=== PATIENT | male | born 1950 | race Two or more races ===

== ENCOUNTER → 2024-04-14 | Outpatient (CLI) | payer OTHER, SELFPAY ==
[2024-04-14 11:04] LABS: Collection Type, Urine Clean Catch
[2024-04-14 11:20] LABS: Basophils # (Auto) 0.1 Thou/mm3 (0.0-0.2); Basophils % (Auto) 1 % (0-2.5); Eosinophils # (Auto) 0.3 Thou/mm3 (0.0-0.5); Eosinophils % (Auto) 3 % (0-10); Hematocrit 46.9 % (41.0-53.0); Hemoglobin 16.2 g/dL (13.5-16.0); Immature Granulocytes % (Auto) 1 % (0-0); Immature Granulocytes Auto 0.06 Thou/mm3 (0.00-0.00); Lymphocytes # (Auto) 3.5 Thou/mm3 (1.0-4.8); Lymphocytes % (Auto) 29 % (10-50); Mean Corpuscular HGB Conc 34.5 g/dl (31.0-37.0); Mean Corpuscular Hemoglobin 30.1 pg (25.0-35.0); Mean Corpuscular Volume 87 fL (80-100); Monocytes # (Auto) 1.2 Thou/mm3 (0.0-0.8); Monocytes % (Auto) 10 % (0-12); Neutrophils # (Auto) 6.8 Thou/mm3 (1.8-7.7); Neutrophils % (Auto) 57 % (37-80); Nucleated Red Blood Cell % 0 /100 WBC (0); Platelet Count 360 Thou/mm3 (140-440); RDW Standard Deviation 42.7 fL (35.1-43.9); Red Blood Count 5.39 Miln/mm3 (4.50-5.90); White Blood Count 11.8 Thou/mm3 (3.8-10.6)
[2024-04-14 11:28] LABS: Bilirubin,Urine Negative (Negative); Blood,Urine Negative (Negative); Clarity,Urine Clear (Clear/Hazy); Color,Urine Lt-Yellow (Lt Yel-Yel); Glucose, Urine Negative (Negative); Ketones,Urine Negative (Negative); Leukocyte Esterase,Urine Positive (Negative); Nitrite,Urine Negative (Negative); PH,Urine 6.5 (5.0-7.0); Protein,Urine Negative (Neg - Trace); RBC,Urine 6 /hpf (0-3); Specific Gravity,Urine 1.019 (1.001-1.035); Squamous Epithelial Cell,Urine 1 /hpf (0-5); Urobilinogen,Urine Negative mg/dL (0.0-1.0); WBC,Urine 2 /hpf (0-5)
[2024-04-14 11:44] LABS: Alanine Aminotransferase 12 U/L (10-49); Albumin, Serum 4.1 gm/dL (3.4-4.8); Albumin/Globulin Ratio 1.6 (1.2-2.2); Alkaline Phosphatase 76 U/L (46-116); Anion Gap 9 (7-16); Aspartate Amino Transferase 11 U/L (0-34); BUN/Creatinine Ratio 16 Ratio (12-20); Bilirubin,Total 0.7 mg/dL (0.3-1.2); Blood Urea Nitrogen 14 mg/dL (9-23); Calcium 9.5 mg/dL (8.3-10.6); Calcium (Corrected) 9.5 mg/dL (8.5-10.1); Carbon Dioxide 30.3 mMol/L (20.0-31.0); Cardiac Risk Estimate 4.1 RATIO (4.0-6.7); Chloride 101 mMol/L (98-107); Cholesterol 167 mg/dL (132-200); Creatinine (Component) 0.9 mg/dL (0.6-1.3); Globulin 2.5 gm/dL (2.3-3.5); Glucose 84 mg/dL (74-106); HDL Cholesterol 41 mg/dL (40-60); LDL Cholesterol,Calculated 107 mg/dL (0-130); Osmolality,Calculated 278 (275-295); Potassium 3.6 mMol/L (3.4-5.1); Sodium 140 mMol/L (136-145); Thyroid Stimulating Hormone 1.15 uIU/mL (0.55-4.78); Total Protein 6.6 gm/dL (5.7-8.2); Triglycerides 97 mg/dL (30-150); Uric Acid 5.5 mg/dL (3.7-9.2); eGFR > 60 See Note
== END | disposition home or self-care (01) ==
LOC: COPL 10:37
PROVIDERS: PCP Family Medicine; Referring Provider Family Medicine; Visit Provider Family Medicine
DX: Z00.00 Encounter for general adult medical examination without abnormal findings (principal); I10 Essential (primary) hypertension; R31.21 Asymptomatic microscopic hematuria; J20.9 Acute bronchitis, unspecified; E79.0 Hyperuricemia without signs of inflammatory arthritis and tophaceous disease
CPT/HCPCS: 36415; 80053; 80061; 81001; 84443; 84550; 85025

== ENCOUNTER 2024-04-29 12:43 | Inpatient (IN) | payer OTHER, MEDICARE, SELFPAY ==
[2024-04-29] VITALS (21 sets, daily range): BP systolic 112–168; BP diastolic 77–102; PULSE 90–126; RESP 15–90; TEMP 36.9–37.8; O2SAT 92–98; BMI 29.2; BMI 27.9; BMI 28.3
--- NOTE | 2024-04-29 12:56 | EKG_ITS ---
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
--- NOTE | 2024-04-29 12:57 | XR_ITS ---
Examination: AP chest single view Technique one AP portable semiupright chest single view Exam date and time: April 29, 2024 1309 hrs. Comparison August 09, 2014 Indications: Shortness of breath today. Findings: Moderate enlargement left ventricle Mild opacity obscuring detail left cardiac contour No aleja pulmonary edema Moderate osteopenia Impression: Recommend lateral chest view follow-up to exclude pneumonia in the lingular segment
--- NOTE | 2024-04-29 13:13 | PD.EDSOB ---
ED SOB =RME/HPI General Chief Complaint: Shortness of Breath/Dyspnea Stated Complaint: SOB, CP, back pain, cough x 1 mo, Post pneumonia Time Seen by Provider: 04/29/24 13:17 Arrival date/time: 04/29/24 12:43 RME / HPI RME / HPI Narrative: DR. BEASLEY MAIN ED EVALUATION: 73 year old male with past medical history significant for hypertension presents to the Emergency Department with complaint of shortness of breath onset 1 week but worse today. Associated symptoms include mild chest pain and a cough. Oxygen saturation 92% on room air in the lobby. Patient was diagnosed with pneumonia in [place] and was taking antibiotics. He states he has an inhaler at home but finished it. Denies vomiting, diarrhea, or constipation. Related Data Home Medications ?Medication ?Instructions ?Recorded ?Confirmed lisinopril 20 1 tab PO QDAY 01/12/20 04/29/24 mg-hydrochlorothiazide 12.5 mg tablet tamsulosin 0.4 mg capsule 0.4 mg PO QDAY 06/18/20 04/29/24 finasteride 5 mg tablet 5 mg PO DAILY 04/29/24 04/29/24 Previous Rx's ?Medication ?Instructions ?Recorded albuterol sulfate 90 mcg/actuation 1 inh inhalation QID PRN shortness 05/01/24 aerosol inhaler of breath or wheezing #6.7 grams azithromycin 500 mg tablet 500 mg PO QDAY 1 day #1 tab 05/01/24 fluticasone fur. 100 mcg-umeclid 1 inh inhalation QDAY #60 ea 05/01/24 62.5 mcg-vilant 25 mcg inhalat.powder (Trelegy Ellipta) Allergies Allergy/AdvReac Type Severity Reaction Status Date / Time No Known Allergies Allergy Verified 08/14/20 11:01 Review of Systems Review of Systems Systems Reviewed: All systems reviewed, normal except as documented Narrative Review of Systems: GEN: No fever, no chills, no weight loss EYES: No discharge, no visual changes, no pain HEENT: No ear pain, no congestion, no sore throat PULM: + shortness of breath, + cough CV: + mild chest pain, no dyspnea on exertion, no palpitations GI: No nausea, no vomiting, no diarrhea, no pain, no constipation : No frequency, no urgency and no dysuria MUSC/SKEL: No joint pain, no back pain SKIN: No rash PSYCH: No hallucinations, no depression HEME/LYMPH: No easy bleeding or bruising tendencies NEURO: No weakness, no headache Past Medical History Past Medical History CARDIAC: Positive Cardiac Disorders GENITOURINARY: Positive Genitourinary Disorders and Benign Prostatic Hyperplasia MUSCULOSKELETAL: Positive Musculoskeletal Disorders and Arthritis ENT: Positive Cataracts (right eye cataract on this problem) OTHER HISTORY: Positive Chicken Pox Family History FAMILY HISTORY: Positive Family Cancer (sister-lung cancer) Surgical History SURGICAL: Positive Tonsillectomy and of Shoulder Sx (RIGHT) Social History SMOKING STATUS: Never smoker SUBSTANCE USE: does not use ALCOHOL: Never ED Exam Narrative Physical exam: GENERAL APPEARANCE: alert and oriented x 4, well-developed, well-nourished, no acute distress VITALS: All vitals were reviewed and the pulse ox is 95% on room air, which is normal according to my interpretation. HEENT: Normocephalic, atraumatic; pupils equal, round, reactive to light; EOMI; mucous membranes pink, moist; oropharynx clear NECK: Supple LUNGS: there are wheezes throughout HEART: Regular rate, regular rhythm; normal S1, S2; no murmurs ABDOMEN: non distended; normal BS; soft, no tenderness, no guarding, no rebound; no masses, no organomegaly, no hernia BACK: no CVA tenderness EXTREMITIES: atraumatic; no edema NEUROLOGIC: awake; alert and oriented x4; cranial nerves II-XII grossly intact; no focal sensory or motor deficits PSYCHIATRIC: appropriate mood and affect SKIN: warm, dry, normal color; no rashes Course Course Course Narrative: 1800: Patient was signed out to Dr. Mchugh. Past medical, surgical, social and family history reviewed. Vitals and home medications reviewed. Results and treatment plan discussed. They will assume the care of the patient at this time and will follow the patient, pending chest CTA, abdomen/pelvis CT, remainder of labs, and final disposition. Quality Measures none Orders Category Date Time Status Bedside COVID-19 Antigen Test NOW Care 04/29/24 12:57 Active Bedside COVID-19 Antigen Test NOW Care 04/29/24 19:22 Completed Bedside Influenza A&B Antigen Test NOW Care 04/29/24 12:57 Completed COVID-19 Screening Questionnaire NOW Care 04/29/24 19:[address] Screening NOW Care 04/29/24 16:56 Active Waste Examiner Q4H START 00 Care 04/29/24 12:57 Active Decision to Admit X1 Care 04/29/24 19:45 Completed EKG (ED ONLY) *Do not use* NOW Care 04/29/24 12:57 Completed EKG (ED Only) Stat Exams 04/29/24 12:56 Draft XR chest 1V portable Stat Exams 04/29/24 12:57 Completed BNP [B-Type Natriuretic Peptide] Stat Lab 04/29/24 13:21 Completed Blood Culture (Lab) Stat Lab 04/29/24 13:21 Results CBC Stat Lab 04/29/24 13:21 Completed Comprehensive Metabolic Panel Stat Lab 04/29/24 13:21 Completed Lactate (Lactic Acid) Stat Lab 04/29/24 13:21 Completed Lipase Stat Lab 04/29/24 13:21 Completed Procalcitonin Stat Lab 04/29/24 13:21 Completed Troponin I Stat Lab 04/29/24 13:21 Completed Troponin I Stat Lab 04/29/24 17:03 Completed Urinalysis Stat Lab 04/29/24 13:46 Completed Urine Culture Stat Lab 04/29/24 13:46 Completed Urine Culture Stat Lab 04/29/24 19:09 Ordered ALBUTEROL RT 0.5ml [Proventil Rt 0.5ml] Med 04/29/24 13:58 Discontinued 10 mg INH X1 ONE Acetaminophen Tab [Tylenol Tab] Med 04/29/24 18:12 Discontinued 650 mg PO X1 ONE Albuterol/Ipratr Rt Leni [Duoneb Rt Leni] Med 04/29/24 12:56 Discontinued 3 ml INH X1 ONE Azithromycin Inj [Zithromax Inj] 500 mg Med 04/29/24 16:58 Discontinued Sodium Chloride 0.9% 250 ml [Ns] 250 ml IV X1 Dexamethasone Inj [Decadron Inj] Med 04/29/24 12:56 Discontinued 10 mg PO X1 ONE Ipratropium [place] Rt Leni [Atrovent Rt Leni] Med 04/29/24 13:58 Discontinued 0.5 mg INH X1 ONE Ketorolac Inj [Toradol Inj] Med 04/29/24 18:12 Discontinued 30 mg IVP X1 ONE Levalbuterol Rt [Xopenex Rt Leni] Med 04/29/24 17:55 Discontinued 2.5 mg INH X1 ONE Magnesium Sulfate 2 GM Ivpb [Magnesium Sulfate Ivpb] Med 04/29/24 19:31 Discontinued 2 gm in 50 ml IV X1 MethylPREDNISolone.* [SoluMEDROL Inj] Med 04/29/24 17:55 Discontinued 125 mg IVP X1 ONE Morphine Inj Med 04/29/24 16:57 Discontinued 3 mg IVP X1 ONE Ondansetron Inj [Zofran Inj] Med 04/29/24 16:57 Discontinued 4 mg IV X1 ONE Potassium Chloride [K-Dur] Med 04/29/24 19:31 Discontinued 40 meq PO X1 ONE Sodium Chloride Rt Leni 0.9% [NS Rt Leni 0.9%] Med 04/29/24 13:58 Discontinued 3 ml INH PRN PRN Sodium Chloride Rt Leni 0.9% [NS Rt Leni 0.9%] Med 04/29/24 17:55 Active 3 ml INH PRN PRN cefTRIAXone [Rocephin] 1,000 mg Med 04/29/24 17:19 Discontinued SODIUM CHLORIDE 0.9% (Popper) [Ns 0.9% (P)] 50 ml IV X1 Reevaluation(s) Reevaluation #1: Re-assessment at the time of disposition demonstrates that the patient is still wheezing and complains of pain in right lower chest area posteriorly, lung pain from coughing . Will give an other breathing treatment, order antibiotics for bronchitis, and order a chest CTA. Time: 16:56 Vital Signs Vital signs: Vital Signs Temperature 99.7 F 04/29/24 12:48 Pulse Rate 103 H 04/29/24 12:48 Respiratory Rate 19 04/29/24 12:48 Blood Pressure 168/102 H 04/29/24 12:48 Pulse Oximetry (%) 92 L 04/29/24 12:48 Oxygen Delivery Method Room Air 04/29/24 12:48 Procedures -ED EKG Interpretation #1: Date of EK04/29/24 Time of EK:00 Rate: 103 Interpretation: Interpreted by me Additional EKG comment: sinus tachycardia, rate 103, no acute ischemic changes Shortness of Breath / Dyspnea MDM Narrative MDM Narrative:: Beth Wolfe am scribing for and in the presence of Dr. Beasley. Patient data External records reviewed:: [facility] previous records (Reviewed opthalmology note by Dr. Junior, dated 06/24/21.) Clinical information provided by:: patient Social determinants that could affect healthcare access:: none Patient has the following chronic illnesses:: Hypertension How is presenting disease/condition affected by chronic disease/condition?: exacerbated by Evaluation data The following diagnostics were reviewed and interpreted by me:: lab results, radiology exam(s) and EKG tracing(s) (EKG#1: EKG at 1300 hours. Interpreted by me: sinus tachycardia, rate 103, no acute ischemic changes) Lab and/or radiology exams considered but not ordered:: none Interpretation Summary: Pending. Medications / Prescriptions Medications or Prescriptions considered but not ordered:: none Medication administrations:: Medication Administration History Acetaminophen (Acetaminophen 500 Mg Tablet) 1,000 mg PO Q6H PRN PRN Reason: Fever >100 or pain 1-3 Stop: 05/29/24 19:53 Last Admin: 05/01/24 16:20 Dose: 1,000 mg Documented By: RICHELLE Hydrocodone Bitart/Acetaminophen (Hydrocodone/Apap 5/325 Tablet) 1 tab PO Q4HR PRN PRN Reason: PAIN SCALE 4-10(Mod-Sev Stop: 05/04/24 19:53 Last Admin: 04/30/24 00:07 Dose: 1 tab Documented By: Enoxaparin Sodium (Enoxaparin Sod Inj 40 Mg/0.4 Ml Syringe) 40 mg SC QDAY [facility] Stop: 05/14/24 08:59 Last Admin: 05/01/24 08:04 Dose: 40 mg Documented By: Admin: 04/30/24 08:47 Dose: 40 mg Documented By: SEBAS Finasteride (Finasteride 5 Mg Tablet) 5 mg PO QDAY [facility] Stop: 05/30/24 08:59 Last Admin: 05/01/24 08:05 Dose: 5 mg Documented By: Admin: 04/30/24 08:47 Dose: 5 mg Documented By: ESBAS Guaifenesin/Dextromethorphan (Guaifenesin/Dm Tablet) 1 each PO BID [facility] Stop: 05/29/24 22:44 Last Admin: 05/01/24 08:05 Dose: 1 each Documented By: Admin: 04/30/24 20:09 Dose: 1 each Documented By: Admin: 04/30/24 08:47 Dose: 1 each Documented By: Admin: 04/30/24 00:03 Dose: 1 each Documented By: Ceftriaxone Sodium 1,000 mg/ (Sodium Chloride) 50 mls @ 100 mls/hr IV QDAY@2100 [facility] Stop: 05/07/24 08:59 Last Admin: 04/30/24 20:06 Dose: 100 mls/hr Documented By: SMOOTH Azithromycin 500 mg/ Sodium (Chloride) 250 mls @ 250 mls/hr IV QDAY@2100 [facility] Stop: 05/07/24 08:59 Last Admin: 04/30/24 21:05 Dose: 250 mls/hr Documented By: SMOOTH Ipratropium [place] (Ipratropium Rt 0.5 Mg/ 2.5 Ml Nebu) 0.5 mg INH Q6HRRT [facility] Stop: 05/30/24 00:59 Last Admin: 05/01/24 18:42 Dose: 0.5 mg Documented By: Admin: 05/01/24 12:21 Dose: 0.5 mg Documented By: Admin: 05/01/24 07:47 Dose: 0.5 mg Documented By: Admin: 05/01/24 00:03 Dose: 0.5 mg Documented By: Admin: 04/30/24 19:32 Dose: 0.5 mg Documented By: Admin: 04/30/24 12:34 Dose: 0.5 mg Documented By: Admin: 04/30/24 06:45 Dose: 0.5 mg Documented By: SIMONE Levalbuterol HCl (Levalbuterol Rt 1.25 Mg/0.5 Ml Nebu) 1.25 mg INH Q6HRRT [facility] Stop: 05/31/24 10:29 Last Admin: 05/01/24 18:42 Dose: 1.25 mg Documented By: Admin: 05/01/24 12:21 Dose: Not Given Documented By: MANUELA Non-Admin Reason: Duplicate Medication on eMAR Admin: 05/01/24 12:20 Dose: 1.25 mg Documented By: MANUELA Lisinopril (Lisinopril 20 Mg Tablet) 20 mg PO QDAY [facility] Stop: 05/31/24 08:59 Last Admin: 05/01/24 08:05 Dose: 20 mg Documented By: RICHELLE Morphine Sulfate (Morphine Sulf Inj 10 Mg/Ml Vial) 2 mg IVP Q4HR PRN PRN Reason: BREAKTHROUGH PAIN Stop: 05/04/24 20:04 Ondansetron HCl (Ondansetron Inj 2 Mg/Ml Inj 2 Ml) 4 mg IV Q6H PRN; Protocol PRN Reason: NAUSEA OR VOMITING Stop: 05/29/24 19:53 Pantoprazole Sodium (Pantoprazole Inj 40 Mg Vial) 40 mg IVP QDAY [facility] Stop: 05/30/24 08:59 Last Admin: 05/01/24 08:06 Dose: 40 mg Documented By: Admin: 04/30/24 08:47 Dose: 40 mg Documented By: SEBAS Sennosides (Senna Tablet) 1 tab PO QDAY [facility]; Protocol Stop: 05/30/24 08:59 Last Admin: 05/01/24 08:06 Dose: 1 tab Documented By: Admin: 04/30/24 08:47 Dose: 1 tab Documented By: SEBAS Sodium Chloride (Sodium Chloride Rt Leni 0.9% 3 Ml Nebu) 3 ml INH PRN PRN PRN Reason: SOLN Stop: 05/29/24 17:54 Tamsulosin HCl (Tamsulosin Hcl 0.4 Mg Capsule) 0.4 mg PO QDAY [facility] Stop: 05/30/24 09:14 Last Admin: 05/01/24 08:06 Dose: 0.4 mg Documented By: Admin: 04/30/24 12:47 Dose: 0.4 mg Documented By: Discontinued Medications Acetaminophen (Acetaminophen 325 Mg Tablet) 650 mg PO X1 ONE Stop: 04/29/24 18:13 Last Admin: 04/29/24 18:22 Dose: 650 mg Documented By: ADEEL Acetaminophen (Acetaminophen 325 Mg Tablet) 650 mg PO Q6H PRN PRN Reason: Fever >100.3 or pain Stop: 05/29/24 19:53 Acetaminophen (Acetaminophen 325 Mg Tablet) 1,000 mg PO Q6H PRN PRN Reason: Fever >100 or pain 1-3 Stop: 05/29/24 19:53 Albuterol (Albuterol Rt 2.5 Mg/0.5 Ml Nebu) 10 mg INH X1 ONE Stop: 04/29/24 13:59 Last Admin: 04/29/24 14:14 Dose: 10 mg Documented By: [facility] Albuterol/Ipratropium (Albuterol/Ipratropium (Duoneb) Rt Leni 3 Ml Nebu) 3 ml INH X1 ONE Stop: 04/29/24 12:57 Last Admin: 04/29/24 13:23 Dose: 3 ml Documented By: LOLI Dexamethasone Sodium Phosphate (Dexamethasone Sod Phos Inj 10 Mg/Ml Vial) 10 mg PO X1 ONE Stop: 04/29/24 12:57 Last Admin: 04/29/24 13:41 Dose: 10 mg Documented By: ADEEL Azithromycin 500 mg/ Sodium (Chloride) 250 mls @ 250 mls/hr IV X1 ONE Stop: 04/29/24 17:57 Last Infusion: 04/29/24 20:25 Dose: Infused Documented By: Admin: 04/29/24 19:19 Dose: 250 mls/hr Documented By: BELKIS Ceftriaxone Sodium 1,000 mg/ (Sodium Chloride) 50 mls @ 100 mls/hr IV X1 ONE Stop: 04/29/24 17:48 Last Infusion: 04/29/24 19:05 Dose: Infused Documented By: Admin: 04/29/24 18:26 Dose: 100 mls/hr Documented By: ADEEL Magnesium Sulfate (Magnesium Sulfate Ivpb) 2 gm in 50 mls @ 25 mls/hr IV X1 ONE Stop: 04/29/24 21:30 Last Admin: 04/29/24 20:23 Dose: 25 mls/hr Documented By: BELKIS Ipratropium [place] (Ipratropium Rt 0.5 Mg/ 2.5 Ml Nebu) 0.5 mg INH X1 ONE Stop: 04/29/24 13:59 Last Admin: 04/29/24 14:15 Dose: 0.5 mg Documented By: LOLI Ketorolac Tromethamine (Ketorolac Inj 30 Mg/Ml Vial) 30 mg IVP X1 ONE Stop: 04/29/24 18:13 Last Admin: 04/29/24 18:26 Dose: 30 mg Documented By: ADEEL Levalbuterol HCl (Levalbuterol Rt 1.25 Mg/0.5 Ml Nebu) 2.5 mg INH X1 ONE Stop: 04/29/24 17:56 Last Admin: 04/29/24 18:37 Dose: 2.5 mg Documented By: LETHA Levalbuterol HCl (Levalbuterol Rt 0.31 Mg/3 Ml Nebu) 0.31 mg INH Q6HR RM Stop: 05/29/24 19:59 Last Admin: 04/29/24 21:03 Dose: Not Given Documented By: LETHA Non-Admin Reason: Medication Not Available Levalbuterol HCl (Levalbuterol Rt 0.31 Mg/3 Ml Nebu) 0.31 mg INH Q6HRRT RM Stop: 05/30/24 00:59 Last Admin: 05/01/24 07:23 Dose: 0.31 mg Documented By: Admin: 05/01/24 00:01 Dose: Not Given Documented By: LEE Non-Admin Reason: Medication Not Available Admin: 04/30/24 19:32 Dose: 0.31 mg Documented By: Admin: 04/30/24 12:34 Dose: 0.31 mg Documented By: Admin: 04/30/24 06:45 Dose: Not Given Documented By: SIMONE Non-Admin Reason: Medication Not Available Methylprednisolone Sodium Succinate (Methylprednisolone Sod Succ 62.5 Mg/Ml 2ml Vial) 125 mg IVP X1 ONE Stop: 04/29/24 17:56 Last Admin: 04/29/24 18:26 Dose: 125 mg Documented By: ADEEL Methylprednisolone Sodium Succinate (Methylprednisolone Sod Succ 40 Mg Vial) 40 mg IVP X1 ONE Stop: 05/01/24 10:19 Last Admin: 05/01/24 12:09 Dose: 40 mg Documented By: RICHELLE Morphine Sulfate (Morphine Sulf Inj 10 Mg/Ml Vial) 3 mg IVP X1 ONE Stop: 04/29/24 16:58 Last Admin: 04/29/24 18:25 Dose: 3 mg Documented By: SARAYS Ondansetron HCl (Ondansetron Inj 2 Mg/Ml Inj 2 Ml) 4 mg IV X1 ONE Stop: 04/29/24 16:58 Last Admin: 04/29/24 18:25 Dose: 4 mg Documented By: ADEEL Potassium Chloride (Potassium Chloride 20 Meq Tabcr) 40 meq PO X1 ONE Stop: 04/29/24 19:32 Last Admin: 04/29/24 20:23 Dose: 40 meq Documented By: BELKIS Sodium Chloride (Sodium Chloride Rt Leni 0.9% 3 Ml Nebu) 3 ml INH PRN PRN PRN Reason: SOLN Stop: 05/29/24 13:57 Last Admin: 04/29/24 18:37 Dose: 3 ml Documented By: Admin: 04/29/24 14:15 Dose: 3 ml Documented By: [facility] Sodium Chloride (Sodium Chloride Rt 10% 15 Ml Nebu) 5 ml INH X1 ONE Stop: 04/29/24 20:00 see above Consultations Consultation(s) initiated? (list below): No Diagnosis Shortness of Breath Differential Diagnosis: acute exacerbation of chronic obstructive airways disease, congestive heart failure, community acquired pneumonia, asthma with exacerbation, pulmonary embolism and other (SC, pneumonia) Most likely diagnosis given after review of the tests above:: No official diagnoses at this time, still pending diagnostic tests. Patient signout to the shift foreman provider. Admission Indicated Admission indicated?: not indicated Explain why admission is indicated or not indicated:: No final disposition plan at this time, still pending diagnostic tests. Patient signout to the shift foreman provider. Admission Request Was there a request for admission?: No Disposition Plan Disposition Plan: other (specify) (Patient signout to the shift foreman provider, pending chest CTA, abdomen/pelvis CT, remainder of labs, and final disposition.) Discharge Plan Plan Patient Disposition: Admit Acute Care w/in Hospital Problem List Clinical Impression: Acute respiratory failure with hypoxia, COPD exacerbation, Pneumonia, UTI (urinary tract infection), Fever
[2024-04-29] MEDS: ALBUTEROL/IPRATROPIUM (Duoneb) RT SOL 3 ML NEBU INH (13:23)
--- NOTE | 2024-04-29 13:27 | PC.NURSE ---
PT IN TODAY FOR COUGH FOR 1 WEEK AND HAS SEEN PMD. STATES THAT HE HAD BEEN SICK ON AND OFF FOR THE LAST MONTH. PT STARTED GETTING WORSE LAST NIGHT. PT IS A/OX4, LUNGS SOUNDS ARE WHEEZING THROUGHOUT. PT SPO2 ON RA IS 84%. PT WAS PLACED ON O2 2L/M AND SPO2 WENT UP TO 95%. IS AT THE BEDSIDE AND AWAITING TO BE SEEN BY MD.
[2024-04-29 13:35] LABS: Lactate (Lactic Acid) 1.4 mMol/L (0.4-2.0)
[2024-04-29] MEDS: DEXAMETHASONE SOD PHOS INJ 10 MG/ML VIAL PO (13:41)
[2024-04-29 13:42] LABS: Basophils # (Auto) 0.1 Thou/mm3 (0.0-0.2); Basophils % (Auto) 0 % (0-2.5); Eosinophils # (Auto) 1.9 Thou/mm3 (0.0-0.5); Eosinophils % (Auto) 10 % (0-10); Hematocrit 50.1 % (41.0-53.0); Hemoglobin 17.1 g/dL (13.5-16.0); Immature Granulocytes % (Auto) 0 % (0-0); Immature Granulocytes Auto 0.08 Thou/mm3 (0.00-0.00); Lymphocytes # (Auto) 2.2 Thou/mm3 (1.0-4.8); Lymphocytes % (Auto) 12 % (10-50); Mean Corpuscular HGB Conc 34.1 g/dl (31.0-37.0); Mean Corpuscular Hemoglobin 30.2 pg (25.0-35.0); Mean Corpuscular Volume 89 fL (80-100); Monocytes # (Auto) 1.4 Thou/mm3 (0.0-0.8); Monocytes % (Auto) 7 % (0-12); Neutrophils # (Auto) 13.1 Thou/mm3 (1.8-7.7); Neutrophils % (Auto) 70 % (37-80); Nucleated Red Blood Cell % 0 /100 WBC (0); Platelet Count 356 Thou/mm3 (140-440); RDW Standard Deviation 44.1 fL (35.1-43.9); Red Blood Count 5.66 Miln/mm3 (4.50-5.90); White Blood Count 18.8 Thou/mm3 (3.8-10.6)
[2024-04-29 14:01] LABS: Alanine Aminotransferase 15 U/L (10-49); Albumin/Globulin Ratio 1.7 (1.2-2.2); Alkaline Phosphatase 85 U/L (46-116); Anion Gap 9 (7-16); Aspartate Amino Transferase 20 U/L (0-34); BUN/Creatinine Ratio 10 Ratio (12-20); Bilirubin,Total 0.9 mg/dL (0.3-1.2); Blood Urea Nitrogen 9 mg/dL (9-23); Calcium 9.9 mg/dL (8.3-10.6); Calcium (Corrected) 9.9 mg/dL (8.5-10.1); Carbon Dioxide 29.4 mMol/L (20.0-31.0); Chloride 99 mMol/L (98-107); Creatinine (Component) 0.9 mg/dL (0.6-1.3); Estimated Creatinine Clearance 84.3 mL/min (>60); Globulin 2.9 gm/dL (2.3-3.5); Glucose 114 mg/dL (74-106); Lipase 40 U/L (12-53); Osmolality,Calculated 273 (275-295); Potassium 3.5 mMol/L (3.4-5.1); Procalcitonin 0.11 ng/ml (0.0-0.49); Sodium 137 mMol/L (136-145); Total Protein 7.9 gm/dL (5.7-8.2); Troponin I < 0.020 ng/mL (0.0-0.045); eGFR > 60 See Note
[2024-04-29 14:09] LABS: B-Type Natriuretic Peptide < 20 pg/mL (0-100)
[2024-04-29] MEDS: ALBUTEROL RT 2.5 MG/0.5 ML NEBU 10 MG INH (14:14)
[2024-04-29] MEDS: IPRATROPIUM RT 0.5 MG/ 2.5 ML NEBU INH (14:15)
[2024-04-29] MEDS: SODIUM CHLORIDE RT SOL 0.9% 3 ML NEBU INH ×2 (14:15→18:37)
[2024-04-29 14:40] LABS: Collection Type, Urine Clean Catch
[2024-04-29 14:51] LABS: Bilirubin,Urine Negative (Negative); Blood,Urine 2+ (Negative); Clarity,Urine Clear (Clear/Hazy); Color,Urine Lt-Yellow (Lt Yel-Yel); Glucose, Urine Negative (Negative); Ketones,Urine Negative (Negative); Leukocyte Esterase,Urine Positive (Negative); Nitrite,Urine Negative (Negative); Protein,Urine 1+ (Neg - Trace); RBC,Urine 35 /hpf (0-3); Specific Gravity,Urine 1.019 (1.001-1.035); Squamous Epithelial Cell,Urine 1 /hpf (0-5); Urobilinogen,Urine Negative mg/dL (0.0-1.0); WBC,Urine 42 /hpf (0-5)
[2024-04-29 17:41] LABS: Troponin I < 0.020 ng/mL (0.0-0.045)
[2024-04-29] MEDS: ACETAMINOPHEN 325 MG TABLET 650 MG PO (18:22)
[2024-04-29] MEDS: ONDANSETRON INJ 2 MG/ML INJ 2 ML 4 MG IV (18:25)
[2024-04-29] MEDS: MORPHINE SULF INJ 10 MG/ML VIAL 3 MG IVP (18:25)
[2024-04-29] MEDS: KETOROLAC INJ 30 MG/ML VIAL IVP (18:26)
[2024-04-29] MEDS: MethylPREDNISolone SOD SUCC 62.5 MG/ML 2ML VIAL 125 MG IVP (18:26)
[2024-04-29] MEDS: cefTRIAXone 1,000 MG in SODIUM CHLORIDE 0.9% (Popper) 50 ML 100 MG IV (18:26)
[2024-04-29] MEDS: LEVALBUTEROL RT 1.25 MG/0.5 ML NEBU 2.5 MG INH (18:37)
[2024-04-29] MEDS: AZITHROMYCIN INJ 500 MG in SODIUM CHLORIDE 0.9% 250 ML 250 ML 250 MG IV (19:19)
--- NOTE | 2024-04-29 19:45 | PD.EDADDENDU ---
Emergency Room Addendum Addendum Narrative: I took over the care from Dr. BENAVIDEZ at 6 PM on 04/29/2024, see her notes for complete H&P and ED course. I reviewed all diagnostic test results. Diagnoses include acute respiratory failure with hypoxia, COPD exacerbation, pneumonia, UTI, and fever. I discussed the case with our hospitalist. About the presentation and exam and diagnostics and treatments here. And need of further care in the hospital. Will accept the patient. Charles Mchugh MD
--- NOTE | 2024-04-29 20:07 | ESHP_ITS ---
<Statement entered by Devon Wu MD - 04/30/24 05:42> 73-year-old male with multiple comorbidities including hypertension and BPH who follows up with outpatient urology who presented with a chief complaint of shortness of breath found to have sepsis secondary to community-acquired pneumonia and UTI. As of now, plan to admit the patient to telemetry, IV antibiotic therapy and will obtain infectious workup. In addition, patient also have BPH for which we will continue to monitor closely as there is a risk for urinary retention.I reviewed above note and agree with findings and plans. I have also personally examined the patient with medicine team and went over assessment and plan with medical team including web development intern and resident physician. Documentation for date of: 04/29/24 HPI History of Present Illness Chief complaint: SOB, Cough, Dysuria History of present illness: HPI: Patient is Hungarian-speaking and history was facilitated by registered healthcare electrical engineering technologist. Patient is a 73-year-old male with past medical history significant for primary hypertension, giant prostatomegaly follows up with Urology Dr. Paul presenting today with a chief complaint of worsening shortness of breath and cough. Patient states that his shortness of breath started 1 month ago and progressively worsened. He states that it occurs both at rest and activity but is worsened with activity and coughing. His cough started around the same time and he described it as productive with white/yellow mucus. Associated with pleuritic chest pain, headaches, feelings of warmth, diaphoresis and occasional palpitations. Patient states that he had his flu and pneumonia vaccine November 2023. Denies any hemoptysis, chest pain/pressure, PND/orthopnea and sick contacts. Patient also endorses dysuria and increased urinary frequency for the past week. Denies any incontinence, poor flow and fever. Of note 1 month ago patient's was in [place] and developed upper respiratory symptoms including cough and shortness of breath. He visited a local physician who recommended he be hospitalized. Patient opted to not be hospitalized and instead was prescribed a 1 week course of Augmentin. Despite completing the course patient's symptoms persisted. ED course: BP 163/102, pulse 102, RR 16, temp 100.1 F, SpO2 92% on 1 L O2 via NC. Labs significant for WBC 18.8, Hb 17.1, HCT 50.1, PLT 256, K3.5, BUN 9, CR 0.9, troponin <0.020. Urinalysis significant for 1+ protein, 2+ blood, leukocyte esterase positive and 42 WBCs. EKG significant for rate 103, sinus tachycardia. No acute ST changes. Chest x-ray significant for left base consolidation. In the ED patient received DuoNebs x 2, dexamethasone 10 Mg p.o. x 1, acetaminophen 650 Mg x 1, morphine 2 Mg IV x 1, ondansetron 4 Mg IV x 1, ceftriaxone 1 g IV x 1, Methylpred 125 Mg IV x 1, ketorolac 30 Mg IV x 1, azithromycin 500 Mg IV x 1. Patient will be admitted for suspected sepsis secondary to UTI and community- acquired pneumonia Review of Systems Review of Systems Narrative Review of Systems: GENERAL: As above HEENT: Denies headaches or visual changes. Denies discharge. Neuro: Denies unusual weakness or difficulty speaking. CARDIO: As Above PULM: As above GI: Denies abdominal pain, N/V/C/D. Reports having BMs. URO: As above MSK/EXT/SKIN: Denies joint/skeletal/muscle pain, issues/changes in upper or lower extremities, itchiness, or superficial pain. PSYCH: Cooperative, pleasant mood & affect. The rest of the review of systems is otherwise negative. Past Medical History Past Medical History Comments PMH COMMENT: Past medical history: Primary hypertension Giant prostatomegaly Medication list: Finasteride 5 Mg p.o. daily Lisinopril/HCTZ 20/12.5 1 tab p.o. daily Past surgical history: B/L Phaco and IOL Allergies: NKFDA Social history: Occupational History: Previously worked as a field sales manager in the [employer] Education Level: Attended elementary school in [place]. Marital Status: with 4 kids Tobacco use: Quit 30 years ago. Previously [id number] smoking history. ETHO use: Occasional Illicit drug use: Denies Social History Note: lives with . Carries out all ADLs independently. At baseline can walk without any assistive devices. Family History: Strong family history of hypertension Exam Vital Signs Temp Pulse Resp BP Pulse Ox O2 Del Method O2 Flow Rate 99.0 F 107 H 16 133/78 H 93 L Nasal Cannula 2 04/29/24 19:04/29/24 19:04/29/24 19:04/29/24 19:00 04/29/24 19:00 04/29/24 19:00 04/29/24 19:00 Narrative Exam Constitutional Alert, oriented x 3 and comfortable. Elderly male on 1L O2 via NC HEENT Vision grossly intact. Patent nares. Trachea midline Respiratory Chest normal on inspection and scattered polyphonic wheeze on auscultation in all lung ellington bilaterally. Cardiovascular S1 and S2 audible, RRR. No murmurs carotid bruit. No gross JVD. Abdominal Soft and non tender to palpation in all quadrants. BS + Genitourinary Suprapubic tenderness on palpation. Musculoskeletal Extremities tone within normal limits. No LE edema. Neurological CN II - XII grossly intact. Extremity motor and sensation grossly intact. Skin Warm, dry and intact. No apparent lesions. Psychiatric Patient has good affect, is cooperative Results: Labs 04/29/24 13:21 04/29/24 13:21 Labs: Short CBC 04/29/24 Range/Units 13:21 WBC 18.8 H (3.8-10.6) Thou/mm3 Hgb 17.1 H (13.5-16.0) g/dL Hct 50.1 (41.0-53.0) % Plt Count 356 (140-440) Thou/mm3 BMP 04/29/24 13:21 Sodium 137 Potassium 3.5 Chloride 99 Carbon Dioxide 29.4 BUN 9 Creatinine 0.9 Glucose 114 H Calcium 9.9 Cardiac Enzymes 04/29/24 04/29/24 Range/Units 13:21 17:03 Troponin I < 0.020 < 0.020 (0.0-0.045) ng/mL Liver Function 04/29/24 Range/Units 13:21 Total Bilirubin 0.9 (0.3-1.2) mg/dL AST 20 (0-34) U/L ALT 15 (10-49) U/L Alkaline Phosphatase 85 (46-116) U/L Albumin 5.0 H (3.4-4.8) gm/dL Urine 04/29/24 Range/Units 13:46 Urine Color Lt-Yellow (Lt Yel-Yel) Urine Clarity Clear (Clear/Hazy) Urine pH 6.0 (5.0-7.0) Ur Specific [place] 1.019 (1.001-1.035) Urine Protein 1+ A (Neg - Trace) Urine Glucose (UA) Negative (Negative) Quality Measures Quality Measures none Advance care planning discussed with:: patient Medications Home Medications and Allergies Home Medications ?Medication ?Instructions ?Recorded ?Confirmed ?Type lisinopril 20 1 tab PO QDAY 01/12/2008/14 History mg-hydrochlorothiazide 12.5 mg tablet finasteride 1 mg tablet 1 mg PO QDAY 06/18/20 History tamsulosin 0.4 mg capsule 0.4 mg PO QDAY 06/18/2007/24 History Allergies Allergy/AdvReac Type Severity Reaction Status Date / Time No Known Allergies Allergy Verified 08/14/20 11:01 Visit Medications Acetaminophen (Acetaminophen 325 Mg Tablet) 650 mg PO Q6H PRN PRN Reason: Fever >100.3 or pain Stop: 05/29/24 19:53 Hydrocodone Bitart/Acetaminophen (Hydrocodone/Apap 5/325 Tablet) 1 tab PO Q4HR PRN PRN Reason: PAIN SCALE 4-10(Mod-Sev Stop: 05/04/24 19:53 Enoxaparin Sodium (Enoxaparin Sod Inj 40 Mg/0.4 Ml Syringe) 40 mg SC QDAY RM Stop: 05/13/24 19:59 Finasteride (Finasteride 5 Mg Tablet) 5 mg PO QDAY RM Stop: 05/30/24 08:59 Magnesium Sulfate (Magnesium Sulfate Ivpb) 2 gm in 50 mls @ 25 mls/hr IV X1 ONE Stop: 04/29/24 21:30 Ceftriaxone Sodium 1,000 mg/ (Sodium Chloride) 50 mls @ 100 mls/hr IV QDAY RM Stop: 05/07/24 08:59 Azithromycin 500 mg/ Sodium (Chloride) 250 mls @ 250 mls/hr IV QDAY RM Stop: 05/07/24 08:59 Ipratropium Collins (Ipratropium Rt 0.5 Mg/ 2.5 Ml Nebu) mg INH Q6HRRT RM Stop: 05/30/24 00:59 Levalbuterol HCl (Levalbuterol Rt 0.31 Mg/3 Ml Nebu) 0.31 mg INH Q6HR RM Stop: 05/29/24 19:59 Morphine Sulfate (Morphine Sulf Inj 10 Mg/Ml Vial) 2 mg IVP Q4HR PRN PRN Reason: BREAKTHROUGH PAIN Stop: 05/04/24 20:04 Ondansetron HCl (Ondansetron Inj 2 Mg/Ml Inj 2 Ml) 4 mg IV Q6H PRN; Protocol PRN Reason: NAUSEA OR VOMITING Stop: 05/29/24 19:53 Pantoprazole Sodium (Pantoprazole Inj 40 Mg Vial) 40 mg IVP QDAY RM Stop: 05/30/24 08:59 Sennosides (Senna Tablet) 1 tab PO QDAY RM; Protocol Stop: 05/30/24 08:59 Sodium Chloride (Sodium Chloride Rt Leni 0.9% 3 Ml Nebu) 3 ml INH PRN PRN PRN Reason: SOLN Stop: 05/29/24 13:57 Last Admin: 04/29/24 18:37 Dose: 3 ml Sodium Chloride (Sodium Chloride Rt Leni 0.9% 3 Ml Nebu) 3 ml INH PRN PRN PRN Reason: SOLN Stop: 05/29/24 13:57 Sodium Chloride (Sodium Chloride Rt Leni 0.9% 3 Ml Nebu) 3 ml INH PRN PRN PRN Reason: SOLN Stop: 05/29/24 17:54 Discontinued Medications Acetaminophen (Acetaminophen 325 Mg Tablet) 650 mg PO X1 ONE Stop: 04/29/24 18:13 Last Admin: 04/29/24 18:22 Dose: 650 mg Albuterol (Albuterol Rt 2.5 Mg/0.5 Ml Nebu) 10 mg INH X1 ONE Stop: 04/29/24 13:59 Last Admin: 04/29/24 14:14 Dose: 10 mg Albuterol/Ipratropium (Albuterol/Ipratropium (Duoneb) Rt Leni 3 Ml Nebu) 3 ml INH X1 ONE Stop: 04/29/24 12:57 Last Admin: 04/29/24 13:23 Dose: 3 ml Dexamethasone Sodium Phosphate (Dexamethasone Sod Phos Inj 10 Mg/Ml Vial) 10 mg PO X1 ONE Stop: 04/29/24 12:57 Last Admin: 04/29/24 13:41 Dose: 10 mg Azithromycin 500 mg/ Sodium (Chloride) 250 mls @ 250 mls/hr IV X1 ONE Stop: 04/29/24 17:57 Last Admin: 04/29/24 19:19 Dose: 250 mls/hr Ceftriaxone Sodium 1,000 mg/ (Sodium Chloride) 50 mls @ 100 mls/hr IV X1 ONE Stop: 04/29/24 17:48 Last Infusion: 04/29/24 19:05 Dose: Infused Ipratropium Collins (Ipratropium Rt 0.5 Mg/ 2.5 Ml Nebu) 0.5 mg INH X1 ONE Stop: 04/29/24 13:59 Last Admin: 04/29/24 14:15 Dose: 0.5 mg Ketorolac Tromethamine (Ketorolac Inj 30 Mg/Ml Vial) 30 mg IVP X1 ONE Stop: 04/29/24 18:13 Last Admin: 04/29/24 18:26 Dose: 30 mg Levalbuterol HCl (Levalbuterol Rt 1.25 Mg/0.5 Ml Nebu) 2.5 mg INH X1 ONE Stop: 04/29/24 17:56 Last Admin: 04/29/24 18:37 Dose: 2.5 mg Methylprednisolone Sodium Succinate (Methylprednisolone Sod Succ 62.5 Mg/Ml 2ml Vial) 125 mg IVP X1 ONE Stop: 04/29/24 17:56 Last Admin: 04/29/24 18:26 Dose: 125 mg Morphine Sulfate (Morphine Sulf Inj 10 Mg/Ml Vial) 3 mg IVP X1 ONE Stop: 04/29/24 16:58 Last Admin: 04/29/24 18:25 Dose: 3 mg Ondansetron HCl (Ondansetron Inj 2 Mg/Ml Inj 2 Ml) 4 mg IV X1 ONE Stop: 04/29/24 16:58 Last Admin: 04/29/24 18:25 Dose: 4 mg Potassium Chloride (Potassium Chloride 20 Meq Tabcr) 40 meq PO X1 ONE Stop: 04/29/24 19:32 Sodium Chloride (Sodium Chloride Rt 10% 15 Ml Nebu) 5 ml INH X1 ONE Stop: 04/29/24 20:00 Assessment & Plan Plan Patient is a 73-year-old male with past medical history significant for primary hypertension, giant prostatomegaly follows up with Urology Dr. Paul presenting today with a chief complaint of worsening shortness of breath and cough. Patient will be admitted for suspected sepsis secondary to UTI and community-acquired pneumonia. Suspected sepsis secondary to UTI Community-acquired pneumonia SIRS 2/4 Leukocytosis Patient presented with 1 month of progressively worsening shortness of breath and productive cough. Also had dysuria and LUTS On exam patient had scattered polyphonic wheeze in all lung ellington and suprapubic tenderness. Chest x-ray showed left lower base consolidation. EKG showed sinus tachycardia rate 103. Occasional PVCs Influenza A and B negative WBC 18.8 PSI/PORT : 71 points. Risk class III. Outpatient or inpatient treatment. Plan: ? Telemetry monitoring ? Blood, urine and sputum cultures ordered. ? RSV and cocci ordered. - HbA1c, TSH ordered ? Levalbuterol every 6 hourly scheduled ? Ipratropium Q6 hourly scheduled ? Ceftriaxone 1 g IV daily ? Azithromycin 500 Mg IV daily Giant prostatomegaly BPH Patient with history of urinary retention and previously followed up with urologist Dr. Paul. Currently patient has no difficulty voiding with no Real catheter in situ. Prostate on CT scan greater than 500 g and meets criteria for giant prostatomegaly. Home medication finasteride 5 Mg p.o. daily. Does not appear to have been on alpha-blockers Plan: ? Resumed home medication finasteride 5 Mg p.o. daily - May benefit from Tamsulosin Primary hypertension Currently BP 135/86 Home medication lisinopril/HCTZ 20/12.5 1 tab p.o. daily Plan: ? Antihypertensives on hold for now due to suspected sepsis Health maintenance: Disposition: IV antibiotics. Pending blood, urine and sputum cultures. Diet: Cardiac Lines: pIVs GI Prophylaxis: Pantoprazole IV Thrombo Prophylaxis: Enoxaparin Code status: FULL CODE Plan of care discussed with Attending Dr. Jazmin Keenan MD PGY 1
[2024-04-29] MEDS: POTASSIUM CHLORIDE 20 mEq TABCR 40 MEQ PO (20:23)
[2024-04-29] MEDS: Magnesium Sulfate 2 GM Ivpb 2 GM/50 ML BAG IV (20:23)
[2024-04-30] VITALS (12 sets, daily range): BP systolic 117–135; BP diastolic 64–95; PULSE 70–98; RESP 16–20; TEMP 36.2–36.6; O2SAT 93–99
[2024-04-30] MEDS: guaiFENesin/DM TABLET 1 EACH PO ×3 (00:03→20:09)
[2024-04-30] MEDS: HYDROcodone/APAP 5/325 TABLET 1 TAB PO (00:07)
[2024-04-30 00:58] LABS: Respiratory Syncytial Virus Ag Negative (Negative)
[2024-04-30 06:08] LABS: Basophils % (Auto) 0 % (0-2.5); Eosinophils % (Auto) 0 % (0-10); Hematocrit 46.7 % (41.0-53.0); Hemoglobin 15.6 g/dL (13.5-16.0); Immature Granulocytes % (Auto) 0 % (0-0); Immature Granulocytes Auto 0.02 Thou/mm3 (0.00-0.00); Lymphocytes # (Auto) 1.1 Thou/mm3 (1.0-4.8); Lymphocytes % (Auto) 13 % (10-50); Mean Corpuscular HGB Conc 33.4 g/dl (31.0-37.0); Mean Corpuscular Hemoglobin 29.7 pg (25.0-35.0); Mean Corpuscular Volume 89 fL (80-100); Monocytes # (Auto) 0.2 Thou/mm3 (0.0-0.8); Monocytes % (Auto) 2 % (0-12); Neutrophils # (Auto) 7.5 Thou/mm3 (1.8-7.7); Neutrophils % (Auto) 85 % (37-80); Nucleated Red Blood Cell % 0 /100 WBC (0); Platelet Count 328 Thou/mm3 (140-440); RDW Standard Deviation 44.4 fL (35.1-43.9); Red Blood Count 5.26 Miln/mm3 (4.50-5.90); White Blood Count 8.8 Thou/mm3 (3.8-10.6)
[2024-04-30 06:35] LABS: Alanine Aminotransferase 13 U/L (10-49); Albumin, Serum 4.4 gm/dL (3.4-4.8); Albumin/Globulin Ratio 1.7 (1.2-2.2); Alkaline Phosphatase 72 U/L (46-116); Anion Gap 12 (7-16); Aspartate Amino Transferase 15 U/L (0-34); BUN/Creatinine Ratio 15 Ratio (12-20); Bilirubin,Total 0.5 mg/dL (0.3-1.2); Blood Urea Nitrogen 17 mg/dL (9-23); Calcium 9.8 mg/dL (8.3-10.6); Calcium (Corrected) 9.8 mg/dL (8.5-10.1); Carbon Dioxide 23.2 mMol/L (20.0-31.0); Chloride 105 mMol/L (98-107); Creatinine (Component) 1.1 mg/dL (0.6-1.3); Estimated Creatinine Clearance 69.3 mL/min (>60); Globulin 2.6 gm/dL (2.3-3.5); Glucose 148 mg/dL (74-106); Magnesium 2.3 mg/dL (1.6-2.6); Osmolality,Calculated 283 (275-295); Phosphorous 2.8 mg/dL (2.4-5.1); Sodium 140 mMol/L (136-145); Thyroid Stimulating Hormone 0.36 uIU/mL (0.55-4.78); eGFR > 60 See Note
[2024-04-30] MEDS: IPRATROPIUM RT 0.5 MG/ 2.5 ML NEBU INH ×3 (06:45→19:32)
[2024-04-30 07:12] LABS: Glucose Estimated Average 114 mg/dL (80-131); Hemoglobin A1C 5.6 % Hgb (4.8-6.0)
[2024-04-30] MEDS: ENOXAPARIN SOD INJ 40 MG/0.4 ML SYRINGE SC (08:47)
[2024-04-30] MEDS: SENNA TABLET 1 TAB PO (08:47)
[2024-04-30] MEDS: FINASTERIDE 5 MG TABLET PO (08:47)
[2024-04-30] MEDS: PANTOPRAZOLE INJ 40 MG VIAL IVP (08:47)
--- NOTE | 2024-04-30 10:08 | CHAP ---
Patient was visited by the Spiritual Care Volunteer from whom they received communion. (Volunteer was in the hospital from 09:04-10:08).
--- NOTE | 2024-04-30 11:07 | PD.RESPRO ---
Documentation for date of: 04/30/24 Subjective Subjective Interval history: Patient seen today at the bedside fine awake, alert, oriented x 3. No overnight events reported. States no active complaints at this time is wondering when he can go home. Vital signs stable at this time. Labs nonsignificant at this time. Cultures are still pending at this time. Will continue current management with IV antibiotics ceftriaxone and azithromycin. Resume patient's home tamsulosin for BPH. Resume lisinopril as taken at home starting tomorrow. Exam Vital Signs Temp Pulse Resp BP Pulse Ox O2 Del Method O2 Flow Rate 97.6 F 86 18 118/64 94 L Nasal Cannula 2 04/30/24 08:00 04/30/24 08:00 04/30/24 08:00 04/30/24 08:00 04/30/24 08:00 04/30/24 08:00 04/30/24 08:00 Narrative Exam Physical Exam GENERAL: NAD, AAOx3, obese HEENT: Moist mucosa. Eyes open, symmetrical, & clear CARDIO: Heart RRR, no obvious murmurs PULM: No noted coughing/dyspnea CTA B/L, no R/W/R GI: Abdomen soft, nondistended, no pain on palpation. BSx4 SKIN/MSK/EXT: No wounds/rashes/edema/amputations, no pain on palpation. Pedal pulses present B/L NEURO: AAOx3, no focal neuro deficits, able to move all 4 extremities Objective Labs 05/01/24 05:06 05/01/24 05:06 Labs: Laboratory Results - last 24 hr 04/29/24 04/29/24 04/29/24 13:21 13:46 17:03 WBC 18.8 H RBC 5.66 Hgb 17.1 H Hct 50.1 MCV 89 MCH 30.2 MCHC 34.1 RDW Std Deviation 44.1 H Plt Count 356 Neut % (Auto) 70 Lymph % (Auto) 12 [place] % (Auto) 7 Eos % (Auto) 10 Baso % (Auto) 0 Neut # (Auto) 13.1 H Lymph # (Auto) 2.2 [place] # (Auto) 1.4 H Eos # (Auto) 1.9 H Baso # (Auto) 0.1 Immature Gran # (Auto) 0.08 H Absolute Nucleated RBC 0.00 Immature Gran % 0 Nucleated RBC % 0 Sodium 137 Potassium 3.5 Chloride 99 Carbon Dioxide 29.4 Anion Gap 9 BUN 9 Creatinine 0.9 Estim Creat Clear Calc 84.3 eGFR > 60 BUN/Creatinine Ratio 10 L Glucose [address] Glu mg/dL Hemoglobin A1c Calculated Osmolality 273 L Lactic Acid 1.4 Calcium 9.9 Corrected Calcium 9.9 Phosphorus Magnesium Total Bilirubin 0.9 AST 20 ALT 15 Alkaline Phosphatase 85 Troponin I < 0.020 < 0.020 B-Natriuretic Peptide < 20 Total Protein 7.9 Albumin 5.0 H Globulin 2.9 Albumin/Globulin Ratio 1.7 Lipase 40 Procalcitonin 0.11 TSH Ur Collection Type Clean Catch Urine Color Lt-Yellow Urine Clarity Clear Urine pH 6.0 Ur Specific [place] 1.019 Urine Protein 1+ A Urine Glucose (UA) Negative Urine Ketones Negative Urine Blood 2+ A Urine Nitrite Negative Urine Bilirubin Negative Urine Urobilinogen (Auto) Negative Ur Leukocyte Esterase Positive Urine RBC 35 H Urine WBC 42 H Ur Squamous Epith Cells 1 Urine Bacteria None RSV Rapid 04/30/24 04/30/24 00:15 05:00 WBC 8.8 D RBC 5.26 Hgb 15.6 Hct 46.7 MCV 89 MCH 29.7 MCHC 33.4 RDW Std Deviation 44.4 H Plt Count 328 Neut % (Auto) 85 H Lymph % (Auto) 13 [place] % (Auto) 2 Eos % (Auto) 0 Baso % (Auto) 0 Neut # (Auto) 7.5 Lymph # (Auto) 1.1 [place] # (Auto) 0.2 Eos # (Auto) 0.0 Baso # (Auto) 0.0 Immature Gran # (Auto) 0.02 H Absolute Nucleated RBC 0.00 Immature Gran % 0 Nucleated RBC % 0 Sodium 140 Potassium 4.0 D Chloride 105 Carbon Dioxide 23.2 Anion Gap 12 BUN 17 Creatinine 1.1 Estim Creat Clear Calc 69.3 eGFR > 60 BUN/Creatinine Ratio [address]ucose [address] Glu mg/dL 114 Hemoglobin A1c 5.6 Calculated Osmolality 283 Lactic Acid Calcium 9.8 Corrected Calcium 9.8 Phosphorus 2.8 Magnesium 2.3 Total Bilirubin 0.5 AST 15 ALT 13 Alkaline Phosphatase 72 Troponin I B-Natriuretic Peptide Total Protein 7.0 Albumin 4.4 D Globulin 2.6 Albumin/Globulin Ratio 1.7 Lipase Procalcitonin TSH 0.36 L Ur Collection Type Urine Color Urine Clarity Urine pH Ur Specific [place] Urine Protein Urine Glucose (UA) Urine Ketones Urine Blood Urine Nitrite Urine Bilirubin Urine Urobilinogen (Auto) Ur Leukocyte Esterase Urine RBC Urine WBC Ur Squamous Epith Cells Urine Bacteria RSV Rapid Negative Quality Measures Quality Measures none Advance care planning discussed with:: patient Assessment & Plan Assessment Current Active Medications: Generic Name Dose Route Start Last Admin Trade Name Freq PRN Reason Stop Dose Admin Acetaminophen 1,000 mg 04/29/24 22:37 Acetaminophen 325 Mg Tablet PO 05/29/24 19:53 Q6H PRN Fever >100 or pain 1-3 Hydrocodone Bitart/Acetaminophen 1 tab 04/29/24 19:54 04/30/24 00:07 Hydrocodone/Apap 5/325 Tablet PO 05/04/24 19:53 1 tab Q4HR PRN Administration PAIN SCALE 4-10(Mod-Sev Enoxaparin Sodium 40 mg 04/30/24 09:00 04/30/24 08:47 Enoxaparin Sod Inj 40 Mg/0.4 Ml Syringe SC 05/14/24 08:59 40 mg QDAY RM Administration Finasteride 5 mg 04/30/24 09:00 04/30/24 08:47 Finasteride 5 Mg Tablet PO 05/30/24 08:59 5 mg QDAY RM Administration Guaifenesin/Dextromethorphan 1 each 04/29/24 22:45 04/30/24 08:47 Guaifenesin/Dm Tablet PO 05/29/24 22:44 1 each BID RM Administration Ceftriaxone Sodium 1,000 mg/ 50 mls @ 100 mls/hr 04/30/24 21:00 Sodium Chloride IV 05/07/24 08:59 QDAY@2100 RM Azithromycin 500 mg/ Sodium 250 mls @ 250 mls/hr 04/30/24 21:00 Chloride IV 05/07/24 08:59 QDAY@2100 RM Ipratropium [place] 0.5 mg 04/30/24 01:00 04/30/24 06:45 Ipratropium Rt 0.5 Mg/ 2.5 Ml Nebu INH 05/30/24 00:59 0.5 mg Q6HRRT RM Administration Levalbuterol HCl 0.31 mg 04/30/24 01:00 04/30/24 06:45 Levalbuterol Rt 0.31 Mg/3 Ml Nebu INH 05/30/24 00:59 Not Given Q6HRRT RM Morphine Sulfate 2 mg 04/29/24 20:05 Morphine Sulf Inj 10 Mg/Ml Vial IVP 05/04/24 20:04 Q4HR PRN BREAKTHROUGH PAIN Ondansetron HCl 4 mg 04/29/24 19:54 Ondansetron Inj 2 Mg/Ml Inj 2 Ml IV 05/29/24 19:53 Q6H PRN NAUSEA OR VOMITING Protocol Pantoprazole Sodium 40 mg 04/30/24 09:00 04/30/24 08:47 Pantoprazole Inj 40 Mg Vial IVP 05/30/24 08:59 40 mg QDAY [facility] Administration Sennosides 1 tab 04/30/24 09:00 04/30/24 08:47 Senna Tablet PO 05/30/24 08:59 1 tab QDAY RM Administration Protocol Sodium Chloride 3 ml 04/29/24 13:58 04/29/24 18:37 Sodium Chloride Rt Leni 0.9% 3 Ml Nebu INH 05/29/24 13:57 3 ml PRN PRN Administration SOLN Sodium Chloride 3 ml 04/29/24 13:58 Sodium Chloride Rt Leni 0.9% 3 Ml Nebu INH 05/29/24 13:57 PRN PRN SOLN Sodium Chloride 3 ml 04/29/24 17:55 Sodium Chloride Rt Leni 0.9% 3 Ml Nebu INH 05/29/24 17:54 PRN PRN SOLN Tamsulosin HCl 0.4 mg 04/30/24 09:15 Tamsulosin Hcl 0.4 Mg Capsule PO 05/30/24 09:14 QDAY RM Plan 73-year-old male with past medical history significant for primary hypertension, giant prostatomegaly follows up with Urology Dr. Paul presenting today with a chief complaint of worsening shortness of breath and cough. Patient will be admitted for suspected sepsis secondary to UTI and community-acquired pneumonia. #Suspected sepsis secondary to UTI #Community-acquired pneumonia #SIRS 2/4 #Leukocytosis Patient presented with 1 month of progressively worsening shortness of breath and productive cough. Also had dysuria and LUTS On exam patient had scattered polyphonic wheeze in all lung ellington and suprapubic tenderness. Chest x-ray showed left lower base consolidation. EKG showed sinus tachycardia rate 103. Occasional PVCs Influenza A and B negative WBC 18.8 PSI/PORT : 71 points. Risk class III. Outpatient or inpatient treatment. Blood cultures negative in 24 hours A1c 5.6, RSV negative, ? Telemetry monitoring ? urine and sputum cultures ordered. ? cocci ordered. ? Levalbuterol every 6 hourly scheduled ? Ipratropium Q6 hourly scheduled ? Ceftriaxone 1 g IV daily ? Azithromycin 500 Mg IV daily #Giant prostatomegaly #BPH Patient with history of urinary retention and previously followed up with urologist Dr. Paul. Currently patient has no difficulty voiding with no Real catheter in situ. Prostate on CT scan greater than 500 g and meets criteria for giant prostatomegaly. Home medication finasteride 5 Mg p.o. daily. Does not appear to have been on alpha-blockers ? Resumed home medication finasteride 5 Mg p.o. daily - May benefit from Tamsulosin #Primary hypertension Currently BP 135/86 Home medication lisinopril/HCTZ 20/12.5 1 tab p.o. daily ? Antihypertensives on hold for now due to suspected sepsis Case discussed with my attending Dr. Sayra Jimenez MD PGY-1 Disposition: Fluids: None Feeding: Cardiac diet Thrombo prophylaxis: Lovenox Gastric Ulcer prophylaxis: Pantoprazole CODE STATUS: Full code Attending Provider Attestation/Addendum eBatriz Wolfe DO, attest that I was physically present for the carbone portions of the service and evaluated the patient with the resident and I reviewed and discussed the case with the resident and agree with the resident's findings and plans of care as documented above Patient seen and eval this a.m. He states that he has been feeling unwell for the past few days. His son does have flulike symptoms as well. Patient has a history of smoking 30 years ago. He continues to have scattered rhonchi on exam. Will continue with breathing treatments for acute COPD exacerbation and community-acquired pneumonia. He is currently on 2 L nasal cannula. Patient is in no acute respiratory distress and states that he is feeling much better. Will continue to titrate O2 as tolerated. Anticipate discharge in a.m. if much improved. Patient states that he has an albuterol inhaler at home, but denies using any long-acting breathing treatments.
--- NOTE | 2024-04-30 11:49 | PC.SS ---
Patient is alert/oriented. Patient is Palestinian speaking only. Interpreting line used. Patient states he lives at home with and children. He's independent with ADL's. Patient was admitted for sepsis and UTI. Patient stsates he does not use any DME. He does not have 02. In hospital he's currently on 02. Patient states upon discharge he will need transportation arrangements. Patient PCP: Dr. Tran. Last appt. was 3 weeks ago. Pharmacy: [facility]. [place] medical decision maker: , Lola. D/c plan: return home.
[2024-04-30] MEDS: LEVALBUTEROL RT 0.31 MG/3 ML NEBU INH ×2 (12:34→19:32)
[2024-04-30] MEDS: TAMSULOSIN HCL 0.4 MG CAPSULE PO (12:47)
[2024-04-30 15:06] LABS: Cocci Serology, IgM Negative (Negative)
[2024-04-30] MEDS: cefTRIAXone 1,000 MG in SODIUM CHLORIDE 0.9% (Popper) 50 ML 100 MG IV (20:06)
[2024-04-30] MEDS: AZITHROMYCIN INJ 500 MG in SODIUM CHLORIDE 0.9% 250 ML 250 ML 250 MG IV (21:05)
[2024-05-01] VITALS (12 sets, daily range): BP systolic 121–149; BP diastolic 70–96; PULSE 69–107; RESP 15–24; TEMP 36.2–37.1; O2SAT 92–99
[2024-05-01] MEDS: IPRATROPIUM RT 0.5 MG/ 2.5 ML NEBU INH ×4 (00:03→18:42)
[2024-05-01 06:09] LABS: Basophils % (Auto) 0 % (0-2.5); Eosinophils # (Auto) 0.2 Thou/mm3 (0.0-0.5); Eosinophils % (Auto) 1 % (0-10); Hematocrit 42.6 % (41.0-53.0); Hemoglobin 14.5 g/dL (13.5-16.0); Immature Granulocytes % (Auto) 1 % (0-0); Immature Granulocytes Auto 0.08 Thou/mm3 (0.00-0.00); Lymphocytes # (Auto) 2.1 Thou/mm3 (1.0-4.8); Lymphocytes % (Auto) 13 % (10-50); Mean Corpuscular Hemoglobin 30.1 pg (25.0-35.0); Mean Corpuscular Volume 89 fL (80-100); Monocytes # (Auto) 1.3 Thou/mm3 (0.0-0.8); Monocytes % (Auto) 8 % (0-12); Neutrophils # (Auto) 11.8 Thou/mm3 (1.8-7.7); Neutrophils % (Auto) 76 % (37-80); Nucleated Red Blood Cell % 0 /100 WBC (0); Platelet Count 312 Thou/mm3 (140-440); RDW Standard Deviation 45.8 fL (35.1-43.9); Red Blood Count 4.81 Miln/mm3 (4.50-5.90); White Blood Count 15.5 Thou/mm3 (3.8-10.6)
[2024-05-01 06:44] LABS: Alanine Aminotransferase 16 U/L (10-49); Albumin, Serum 3.7 gm/dL (3.4-4.8); Albumin/Globulin Ratio 1.5 (1.2-2.2); Alkaline Phosphatase 67 U/L (46-116); Anion Gap 6 (7-16); Aspartate Amino Transferase 16 U/L (0-34); BUN/Creatinine Ratio 21 Ratio (12-20); Bilirubin,Total 0.3 mg/dL (0.3-1.2); Blood Urea Nitrogen 17 mg/dL (9-23); Calcium 8.9 mg/dL (8.3-10.6); Calcium (Corrected) 9.1 mg/dL (8.5-10.1); Carbon Dioxide 28.4 mMol/L (20.0-31.0); Chloride 107 mMol/L (98-107); Creatinine (Component) 0.8 mg/dL (0.6-1.3); Estimated Creatinine Clearance 95.3 mL/min (>60); Free T4 (Free Thyroxine) 1.33 ng/dL (0.89-1.76); Globulin 2.4 gm/dL (2.3-3.5); Glucose 99 mg/dL (74-106); Magnesium 1.9 mg/dL (1.6-2.6); Osmolality,Calculated 282 (275-295); Phosphorous 3.1 mg/dL (2.4-5.1); Potassium 3.7 mMol/L (3.4-5.1); Sodium 141 mMol/L (136-145); Total Protein 6.1 gm/dL (5.7-8.2); eGFR > 60 See Note
[2024-05-01] MEDS: LEVALBUTEROL RT 0.31 MG/3 ML NEBU INH (07:23)
[2024-05-01] MEDS: ENOXAPARIN SOD INJ 40 MG/0.4 ML SYRINGE SC (08:04)
[2024-05-01] MEDS: FINASTERIDE 5 MG TABLET PO (08:05)
[2024-05-01] MEDS: guaiFENesin/DM TABLET 1 EACH PO ×2 (08:05→21:13)
[2024-05-01] MEDS: Lisinopril 20 MG TABLET PO (08:05)
[2024-05-01] MEDS: SENNA TABLET 1 TAB PO (08:06)
[2024-05-01] MEDS: TAMSULOSIN HCL 0.4 MG CAPSULE PO (08:06)
[2024-05-01] MEDS: PANTOPRAZOLE INJ 40 MG VIAL IVP (08:06)
--- NOTE | 2024-05-01 09:28 | PC.SS ---
Follow up note: Patient pending cultures then discharge home
[2024-05-01] MEDS: LEVALBUTEROL RT 1.25 MG/0.5 ML NEBU INH ×2 (12:20→18:42)
[2024-05-01 12:38] LABS: Cocci Serology, IgG Negative (Negative)
--- NOTE | 2024-05-01 13:43 | PC.NURSE ---
Ambulated patient down hallway, patient stated felt out of breath but manageable. Oxygen saturating 90% on RA, HR 104. Patient was able to walk down hallway and back into bed.
[2024-05-01] MEDS: ACETAMINOPHEN 500 MG TABLET 1000 MG PO (16:20)
--- NOTE | 2024-05-01 16:26 | ESPR_ITS ---
<Statement entered by Yady Mai MD - 05/01/24 18:24> Patient seen and examined at bedside. No acute overnight events reported. Patient continues to still have wheezing and scant crackles at bedside. Given extra dose of steroids and breathing treatments today, and anticipate discharge tomorrow with oral antibiotics, Trelegy, and albuterol rescue inhaler. I discussed with and supervised the [employer] compliance internship physician who took care of this patient. I personally saw and examined the patient and discussed the assessment and plan with the entire medicine team, including my attending Dr. Colbert, I agree with most of the assessment and plan as documented below Yady Mai M.D. PGY-2 Disclaimer: Despite multiple revisions, due to the dictation software being used, the document bellow may not be free of grammatical errors including phonetic/typographic errors. However, this does not deter from our commitment to providing health care in the patient's best interest in mind. Documentation for date of: 05/01/24 Subjective Subjective Interval history: Patient seen today at the bedside fine awake, alert, oriented x 3. No overnight events reported. States improvement in respiration and wants to go home. Vital signs stable at this time. Labs at this time nonsignificant. Anticipate discharge in the next 24 to 48 hours. Exam Vital Signs Temp Pulse Resp BP Pulse Ox O2 Del Method O2 Flow Rate 97.6 F 107 H 15 136/81 H 99 Room Air 2 05/01/24 12:00 05/01/24 12:22 05/01/24 12:22 05/01/24 12:00 05/01/24 12:22 05/01/24 12:00 05/01/24 12:22 Narrative Exam Physical Exam GENERAL: NAD, AAOx3, obese HEENT: Moist mucosa. Eyes open, symmetrical, & clear CARDIO: Heart RRR, no obvious murmurs PULM: No noted coughing/dyspnea CTA B/L, no R/W/R GI: Abdomen soft, nondistended, no pain on palpation. BSx4 SKIN/MSK/EXT: No wounds/rashes/edema/amputations, no pain on palpation. Pedal pulses present B/L NEURO: AAOx3, no focal neuro deficits, able to move all 4 extremities Objective Labs 05/02/24 04:40 05/02/24 04:40 Labs: Laboratory Results - last 24 hr 04/30/24 05/01/24 05:00 05:06 WBC 15.5 H D RBC 4.81 Hgb 14.5 Hct 42.6 MCV 89 MCH 30.1 MCHC 34.0 RDW Std Deviation 45.8 H Plt Count 312 Neut % (Auto) 76 Lymph % (Auto) 13 [place] % (Auto) 8 Eos % (Auto) 1 Baso % (Auto) 0 Neut # (Auto) 11.8 H Lymph # (Auto) 2.1 [place] # (Auto) 1.3 H Eos # (Auto) 0.2 Baso # (Auto) 0.0 Immature Gran # (Auto) 0.08 H Absolute Nucleated RBC 0.00 Immature Gran % 1 H Nucleated RBC % 0 Sodium 141 Potassium 3.7 Chloride 107 Carbon Dioxide 28.4 Anion Gap 6 L BUN 17 Creatinine 0.8 Estim Creat Clear Calc 95.3 eGFR > 60 BUN/Creatinine Ratio 21 H Glucose 99 Calculated Osmolality 282 Calcium 8.9 Corrected Calcium 9.1 Phosphorus 3.1 Magnesium 1.9 Total Bilirubin 0.3 AST 16 ALT 16 Alkaline Phosphatase 67 Total Protein 6.1 Albumin 3.7 D Globulin 2.4 Albumin/Globulin Ratio 1.5 Free T4 1.33 Coccidioides IgG Ab Negative Quality Measures Quality Measures none Advance care planning discussed with:: patient Assessment & Plan Assessment Current Active Medications: Generic Name Dose Route Start Last Admin Trade Name Freq PRN Reason Stop Dose Admin Acetaminophen 1,000 mg 04/30/24 11:46 05/01/24 16:20 Acetaminophen 500 Mg Tablet PO 05/29/24 19:53 1,000 mg Q6H PRN Administration Fever >100 or pain 1-3 Hydrocodone Bitart/Acetaminophen 1 tab 04/29/24 19:54 04/30/24 00:07 Hydrocodone/Apap 5/325 Tablet PO 05/04/24 19:53 1 tab Q4HR PRN Administration PAIN SCALE 4-10(Mod-Sev Enoxaparin Sodium 40 mg 04/30/24 09:00 05/01/24 08:04 Enoxaparin Sod Inj 40 Mg/0.4 Ml Syringe SC 05/14/24 08:59 40 mg QDAY RM Administration Finasteride 5 mg 04/30/24 09:00 05/01/24 08:05 Finasteride 5 Mg Tablet PO 05/30/24 08:59 5 mg QDAY RM Administration Guaifenesin/Dextromethorphan 1 each 04/29/24 22:45 05/01/24 08:05 Guaifenesin/Dm Tablet PO 05/29/24 22:44 1 each BID RM Administration Ceftriaxone Sodium 1,000 mg/ 50 mls @ 100 mls/hr 04/30/24 21:00 04/30/24 20:06 Sodium Chloride IV 05/07/24 08:59 100 mls/hr QDAY@2100 RM Administration Azithromycin 500 mg/ Sodium 250 mls @ 250 mls/hr 04/30/24 21:00 04/30/24 21:05 Chloride IV 05/07/24 08:59 250 mls/hr QDAY@2100 RM Administration Ipratropium [place] 0.5 mg 04/30/24 01:00 05/01/24 12:21 Ipratropium Rt 0.5 Mg/ 2.5 Ml Nebu INH 05/30/24 00:59 0.5 mg Q6HRRT RM Administration Levalbuterol HCl 1.25 mg 05/01/24 10:30 05/01/24 12:21 Levalbuterol Rt 1.25 Mg/0.5 Ml Nebu INH 05/31/24 10:29 Not Given Q6HRRT RM Lisinopril 20 mg 05/01/24 09:00 05/01/24 08:05 Lisinopril 20 Mg Tablet PO 05/31/24 08:59 20 mg QDAY RM Administration Morphine Sulfate 2 mg 04/29/24 20:05 Morphine Sulf Inj 10 Mg/Ml Vial IVP 05/04/24 20:04 Q4HR PRN BREAKTHROUGH PAIN Ondansetron HCl 4 mg 04/29/24 19:54 Ondansetron Inj 2 Mg/Ml Inj 2 Ml IV 05/29/24 19:53 Q6H PRN NAUSEA OR VOMITING Protocol Pantoprazole Sodium 40 mg 04/30/24 09:00 05/01/24 08:06 Pantoprazole Inj 40 Mg Vial IVP 05/30/24 08:59 40 mg QDAY RM Administration Sennosides 1 tab 04/30/24 09:00 05/01/24 08:06 Senna Tablet PO 05/30/24 08:59 1 tab QDAY RM Administration Protocol Sodium Chloride 3 ml 04/29/24 17:55 Sodium Chloride Rt Leni 0.9% 3 Ml Nebu INH 05/29/24 17:54 PRN PRN SOLN Tamsulosin HCl 0.4 mg 04/30/24 09:15 05/01/24 08:06 Tamsulosin Hcl 0.4 Mg Capsule PO 05/30/24 09:14 0.4 mg QDAY RM Administration Plan 73-year-old male with past medical history significant for primary hypertension, giant prostatomegaly follows up with Urology Dr. Paul presenting today with a chief complaint of worsening shortness of breath and cough. Patient will be admitted for suspected sepsis secondary to UTI and community-acquired pneumonia. #Suspected sepsis secondary to UTI #Community-acquired pneumonia #SIRS 2/4 #Leukocytosis Patient presented with 1 month of progressively worsening shortness of breath and productive cough. Also had dysuria and LUTS On exam patient had scattered polyphonic wheeze in all lung [place] and suprapubic tenderness. Chest x-ray showed left lower base consolidation. EKG showed sinus tachycardia rate 103. Occasional PVCs Influenza A and B negative WBC 18.8 PSI/PORT : 71 points. Risk class III. Outpatient or inpatient treatment. Blood cultures negative in 24 hours A1c 5.6, RSV negative, ? Telemetry monitoring ? urine and sputum cultures ordered. ? cocci ordered. ? Levalbuterol every 6 hourly scheduled ? Ipratropium Q6 hourly scheduled ? Ceftriaxone 1 g IV daily ? Azithromycin 500 Mg IV daily #Giant prostatomegaly #BPH Patient with history of urinary retention and previously followed up with urologist Dr. Paul. Currently patient has no difficulty voiding with no Real catheter in situ. Prostate on CT scan greater than 500 g and meets criteria for giant prostatomegaly. Home medication finasteride 5 Mg p.o. daily. Does not appear to have been on alpha-blockers ? Resumed home medication finasteride 5 Mg p.o. daily - Tamsulosin #Primary hypertension Currently BP 135/86 Home medication lisinopril/HCTZ 10/02.5 1 tab p.o. daily ? Antihypertensives on hold for now due to suspected sepsis Case discussed with my senior Dr. Mai PGY-[address] Sayra Jimenez MD PGY-1 Disposition: Med telemetry Fluids: None Feeding: Cardiac diet Thrombo prophylaxis: Lovenox Gastric Ulcer prophylaxis: Pantoprazole CODE STATUS: Full code Attending Provider Attestation/Addendum Beatriz Wolfe DO, attest that I was physically present for the carbone portions of the service and evaluated the patient with the resident and I reviewed and discussed the case with the resident and agree with the resident's findings and plans of care as documented above Patient seen and evaluated this AM. He continues to have some bibasilar rhonchi. He remains on 1-2L/NC. Patient reports improvement of his breathing, but complains of productive cough. Will continue with breathing treatments and give another dose of steroids due to congestion and wheezing. Will do O2 walk test in anticipation of discharge within next 24h. Continue with current managment otherwise.
--- NOTE | 2024-05-01 20:55 | ECHO_ITS ---
Transthoracic Echo Report Ht (in): 70 Wt (lb): 197 Exam Location: [facility] Status: Inpatient Patient Transport Orderly: SANCHEZ Samantha^^^^ Indications: Procedure Performed: BP: 128 / 82 HR: 110 Technical Quality: Technically difficult study MEASUREMENTS (Male / Female) Normal Values 2D ECHO LV Diastolic Diameter PLAX 4.7 cm 4.2 - 5.9 / 3.9 - 5.3 cm LV Systolic Diameter PLAX 3.2 cm IVS Diastolic Thickness 1.0 cm 0.6 - 1.0 / 0.6 - 0.9 cm LVPW Diastolic Thickness 0.9 cm 0.6 - 1.0 / 0.6 - 0.9 cm LV Relative Wall Thickness 0.4 LVOT Diameter 2.0 cm Aortic Root Diameter 3.6 cm LA Systolic Diameter LX 3.6 cm 3.0 - 4.0 / 2.7 - 3.8 cm LV Ejection Fraction MOD BP 68.9 % >= 55 % LV Cardiac Index MOD BP 5185.5 cm?/min?m? LV Ejection Fraction MOD 4C 66.0 % LV Cardiac Index MOD 4C 5787.6 cm?/min?m? LV Ejection Fraction 4C AL 66.9 % LV Cardiac Index 4C AL 6045.5 cm?/min?m? LV Ejection Fraction MOD 2C 72.3 % LV Cardiac Index MOD 2C 4464.0 cm?/min?m? LV Ejection Fraction 2C AL 73.0 % LV Cardiac Index 2C AL 4532.6 cm?/min?m? LA Volume Index 36.9 cm?/m? 16 - 28 cm?/m? DOPPLER AV Peak Velocity 118.0 cm/s AV Peak Gradient 5.6 mmHg AV Mean Gradient 4.0 mmHg AV Velocity Time Integral 24.4 cm LVOT Peak Velocity 106.0 cm/s LVOT Peak Gradient 4.5 mmHg LVOT Velocity Time Integral 27.8 cm LVOT Cardiac Index 4533.4 cm?/min?m? AV Area Cont Eq vti 3.6 cm? AV Area Cont Eq pk 2.8 cm? MV Area PHT 2.6 cm? MR Peak Velocity 251.0 cm/s MR Peak Gradient 25.2 mmHg Mitral E Point Velocity 53.2 cm/s Mitral A Point Velocity 68.0 cm/s Mitral E to A Ratio 0.8 LV E' Lateral Velocity 12.2 cm/s Mitral E to LV E' Lateral Ratio 4.4 LV E' Septal Velocity 8.2 cm/s Mitral E to LV E' Septal Ratio 6.5 TR Peak Velocity 184.0 cm/s TR Peak Gradient 13.5 mmHg PV Peak Velocity 93.3 cm/s PV Peak Gradient 3.5 mmHg RVOT Peak Velocity 58.4 cm/s FINDINGS Left Ventricle Normal left ventricular size, wall thickness, systolic function with no obvious regional wall motion abnormalities. There is grade I diastolic dysfunction of the left ventricle (impaired relaxation pattern). . The ejection fraction is visually estimated at 60-65%. Right Ventricle The right ventricle is normal in size and systolic function. The estimated right ventricular systolic pressure, 15 mmHg. Left Atrium The left atrium is normal by two-dimensional, color flow and Doppler imaging with no structural abnormalities, no thrombus formation present. Right Atrium The right atrium is normal by two-dimensional imaging, color flow and Doppler imaging with no structural abnormalities, no thrombus formation present. Atrial Septum The interatrial septum appears normal with no evidence of a shunt. Aorta The aorta is normal by two-dimensional, color flow and Doppler interrogation. Mitral Valve Mild mitral regurgitation. Mild mitral annular calcification. Aortic Valve The aortic valve is trileaflet and normal to two-dimensional, color flow and Doppler interrogation. Tricuspid Valve There is mild tricuspid valve regurgitation. Pulmonic Valve The pulmonic valve is not well visualized. There is no significant pulmonic valve regurgitation. Vessels The pulmonary artery appears normal. The inferior vena cava pulmonary and hepatic veins appear normal. Pericardium The pericardium is normal by two-dimensional imaging. There is no significant pericardial effusion. CONCLUSIONS Indication: Shortness of breath, evaluate LV function Normal LV size and function with an estimated EF of 55 to 60%. Stage I diastolic dysfunction. Mild LVH. Normal RV size and function. Mild TR. Estimated RVSP is normal and less than 25 mmHg. Mild MAC with mild thickening of valve leaflets and mild MR. Aortic valve appears normal with minimal calcification. Colt Ornelas (Electronically Signed) Final Date: 02 May 2024 10:41
[2024-05-01] MEDS: cefTRIAXone 1,000 MG in SODIUM CHLORIDE 0.9% (Popper) 50 ML 100 MG IV (21:13)
[2024-05-01] MEDS: AZITHROMYCIN INJ 500 MG in SODIUM CHLORIDE 0.9% 250 ML 250 ML 250 MG IV (21:55)
[2024-05-02] VITALS (8 sets, daily range): BP systolic 132–152; BP diastolic 82–97; PULSE 59–99; RESP 16–20; TEMP 36.1–36.8; O2SAT 92–99
[2024-05-02] MEDS: LEVALBUTEROL RT 1.25 MG/0.5 ML NEBU INH ×3 (01:05→12:42)
[2024-05-02] MEDS: IPRATROPIUM RT 0.5 MG/ 2.5 ML NEBU INH ×3 (01:05→12:42)
[2024-05-02 06:07] LABS: Basophils % (Auto) 1 % (0-2.5); Eosinophils % (Auto) 0 % (0-10); Hemoglobin 14.7 g/dL (13.5-16.0); Immature Granulocytes % (Auto) 0 % (0-0); Immature Granulocytes Auto 0.02 Thou/mm3 (0.00-0.00); Lymphocytes % (Auto) 24 % (10-50); Mean Corpuscular HGB Conc 33.4 g/dl (31.0-37.0); Mean Corpuscular Hemoglobin 29.9 pg (25.0-35.0); Mean Corpuscular Volume 90 fL (80-100); Monocytes % (Auto) 11 % (0-12); Neutrophils # (Auto) 5.4 Thou/mm3 (1.8-7.7); Neutrophils % (Auto) 64 % (37-80); Nucleated Red Blood Cell % 0 /100 WBC (0); Platelet Count 319 Thou/mm3 (140-440); Red Blood Count 4.91 Miln/mm3 (4.50-5.90); White Blood Count 8.5 Thou/mm3 (3.8-10.6)
[2024-05-02 06:42] LABS: Alanine Aminotransferase 15 U/L (10-49); Albumin, Serum 3.8 gm/dL (3.4-4.8); Albumin/Globulin Ratio 1.6 (1.2-2.2); Alkaline Phosphatase 62 U/L (46-116); Anion Gap 4 (7-16); Aspartate Amino Transferase 15 U/L (0-34); BUN/Creatinine Ratio 18 Ratio (12-20); Bilirubin,Total 0.3 mg/dL (0.3-1.2); Blood Urea Nitrogen 14 mg/dL (9-23); Calcium 8.8 mg/dL (8.3-10.6); Carbon Dioxide 28.1 mMol/L (20.0-31.0); Chloride 106 mMol/L (98-107); Creatinine (Component) 0.8 mg/dL (0.6-1.3); Estimated Creatinine Clearance 95.3 mL/min (>60); Globulin 2.4 gm/dL (2.3-3.5); Glucose 100 mg/dL (74-106); Osmolality,Calculated 276 (275-295); Phosphorous 3.3 mg/dL (2.4-5.1); Potassium 3.5 mMol/L (3.4-5.1); Sodium 138 mMol/L (136-145); Total Protein 6.2 gm/dL (5.7-8.2); eGFR > 60 See Note
[2024-05-02] MEDS: PANTOPRAZOLE INJ 40 MG VIAL IVP (10:21)
[2024-05-02] MEDS: ENOXAPARIN SOD INJ 40 MG/0.4 ML SYRINGE SC (10:21)
[2024-05-02] MEDS: FINASTERIDE 5 MG TABLET PO (10:22)
[2024-05-02] MEDS: Lisinopril 20 MG TABLET PO (10:22)
[2024-05-02] MEDS: TAMSULOSIN HCL 0.4 MG CAPSULE PO (10:23)
[2024-05-02] MEDS: guaiFENesin/DM TABLET 1 EACH PO (10:23)
[2024-05-02] MEDS: SENNA TABLET 1 TAB PO (10:23)
--- NOTE | 2024-05-02 11:47 | ESDS_ITS ---
<Statement entered by Beatriz Colbert DO - 05/02/24 17:20> I, Beatriz Colbert DO, attest that I was physically present for the carbone portions of the service and evaluated the patient with the resident and I reviewed and discussed the case with the resident and agree with the resident's findings and plans of care as documented above <Statement entered by Adriana Rodriguez MD - 05/02/24 14:32> I discussed with and supervised the technical intern physician who took care of this patient. I personally saw and examined the patient and discussed the assessment and plan with the entire medicine team, including my attending Dr. Colbert, I agree with the assessment and plan as documented below Patient seen and examined at bedside today. Labs and imaging reviewed. All questions were answered recommendation were given to come to the ED at any time as he is not feeling well or symptoms does not improved Follow-up with primary care physician Dr. Sarahi Tran on May 04 @ 1:45pm Patient will be discharged home with: ? Medrol tera please take these as instructed ? Continue albuterol and Trelegy please use these medications as directed for COPD Adriana Rodriguez MD PGY-3 Disclaimer: Despite multiple revisions, due to the dictation software being used, the document bellow may not be free of grammatical errors including phonetic/typographic errors. However, this does not deter from our commitment to providing health care in the patient's best interest in mind. Planned Discharge Date 05/02/24 DS: Providers Provider Date of admission: 04/29/24 19:54 Primary care physician: Avila Tran MD Admitting Provider: Devon Wu MD Attending Provider on Admission: Beatriz Colbert DO Attending Provider on DC: Beatriz Colbert DO Discharging Provider: Tej Jimenez MD Anticipated date of discharge: 05/02/24 DS: Diagnosis Problem List Completed Was Problem List Reviewed/Reconciled?: Yes Hospital Course Hospital Course Hospital course: 73-year-old male with past medical history significant for primary hypertension, giant prostatomegaly follows up with Urology Dr. Paul presenting today with a chief complaint of worsening shortness of breath and cough. Patient will be admitted for suspected sepsis secondary to community-acquired pneumonia and COPD exacerbation. During hospital stay patient was managed with IVF including sepsis bolus and IV antibiotics. Cultures ordered, RSV, Cocci, also were ordered found to be negative. Breathing treatments were provided throughout the hospitalization as well as steroid treatment with improvement of symptoms from time of admission. Patient has history of benign prostastic hyperplasia and medication finasteride was resumed as taken and was given tamsulosin as well. Patient on admission was normotensive and hypertensive medications were withheld. At the time of discharge antihypertensive medications were resumed as BP has stabilized from resolution of acute infection. At this time patient is medically stable for discharge. Follow-up with primary care physician Dr. Sarahi Tran on May 04 @ 1:45pm. You have been prescribed albuterol, and Trelegy please use these medications as directed for COPD. You have been prescribed the Medrol tera please take these as instructed. Should any symptoms recur or worsen patient is instructed to return to the ED. Problem List: #Sepsis secondary to Community-acquired pneumonia-resolved #Acute COPD exacerbation-resolved #SIRS 2/4 #Leukocytosis-resolved #Giant prostatomegaly #BPH #Primary hypertension Case discussed with my senior Dr. Rodriguez PGY-[address] Sayra Jimenez MD PGY-1 Status at Discharge Functional status at discharge: independent ambulation Overall status at discharge: patient is back to baseline Time Spent with Patient Time attestation: Total time spent providing and/or coordinating discharge services: Time spent: Greater than 30 minutes Exam Vital Signs Temp Pulse Resp BP Pulse Ox O2 Del Method O2 Flow Rate 97.9 F 75 18 148/91 H 92 L Nasal Cannula 1 05/02/24 08:00 05/02/24 10:22 05/02/24 08:00 05/02/24 10:22 05/02/24 08:00 05/02/24 08:00 05/02/24 08:00 Narrative Exam Physical Exam GENERAL: NAD, AAOx3, obese HEENT: Moist mucosa. Eyes open, symmetrical, & clear CARDIO: Heart RRR, no obvious murmurs PULM: No noted coughing/dyspnea, minimal bilateral wheezing GI: Abdomen soft, nondistended, no pain on palpation. BSx4 SKIN/MSK/EXT: No wounds/rashes/edema/amputations, no pain on palpation. Pedal pulses present B/L NEURO: AAOx3, no focal neuro deficits, able to move all 4 extremities Discharge Plan Plan Patient Disposition: HOME (Self Care) Care Plan Goals: Follow-up with primary care physician Dr. Sarahi Tran on May 04 @ 1:45pm You have been prescribed albuterol, and Trelegy please use these medications as directed for COPD You have been prescribed the Medrol tera please take these as instructed Should any symptoms recur or worsen patient is instructed to return to the ED. Prescriptions/Referrals Prescriptions/Med Rec: New Trelegy Ellipta 100-62.5-25 mcg blister with device 1 inh inhalation QDAY Qty: 60 0RF albuterol sulfate 90 mcg/actuation HFA aerosol inhaler 1 inh inhalation QID PRN (Reason: shortness of breath or wheezing) Qty: 6.7 0RF methylprednisolone [Medrol (Tera)] 4 mg tablets,dose pack 4 mg PO QDAY Qty: 21 0RF Continued lisinopril-hydrochlorothiazide 20-12.5 mg tablet 1 tab PO QDAY tamsulosin 0.4 mg Capsule 0.4 mg PO QDAY finasteride 5 mg tablet 5 mg PO DAILY Referrals: Avila Tran MD [Primary Care Provider] - Patient/Caregiver Discharge Instructions Meds to Beds: No Discharge Activity: activity as tolerated Print Language: [place] Stand Alone Forms: [facility] Award Info., Patient Portal Info Letter Discharge Order Discharge Orders: Discharge (Routine); Ordered 05/02/24 Ordered By: Tej Jimenez Quality Discharge Quality Measures VTE prophylaxis
== END 2024-05-02 15:18 | disposition home or self-care (01) | DRG 871 ==
LOC: SERX 19:45 → SERHOLD 20:09 → S3SX 23:09
PROVIDERS: Emergency Medicine; Nurse Practitioner Primary Care; Student in an Organized Health Care Education/Training Program; Admitting Provider Internal Medicine; Emergency Provider Emergency Medicine; PCP Family Medicine; Visit Provider Internal Medicine
DX: A41.9 Sepsis, unspecified organism (principal); J18.9 Pneumonia, unspecified organism; J44.0 Chronic obstructive pulmonary disease with (acute) lower respiratory infection; N39.0 Urinary tract infection, site not specified; J44.1 Chronic obstructive pulmonary disease with (acute) exacerbation; I10 Essential (primary) hypertension; N40.1 Benign prostatic hyperplasia with lower urinary tract symptoms; I49.3 Ventricular premature depolarization; R33.8 Other retention of urine; Z87.891 Personal history of nicotine dependence; Z79.899 Other long term (current) drug therapy
CPT/HCPCS: 36415; 71045; 80053; 81001; 83036; 83605; 83690; 83735; 83880; 84100; 84145; 84439; 84443; 84484; 85025; 86331; 86635; 87040; 87086; 87205; 87400; 87634; 87811; 93005; 93225; 93306; 94640; 96365; 96367; 96375; 99285; A9270; J0456; J0696; J1100; J1650; J1885; J2270; J2405; J2470; J2919; J3475; J7050

== ENCOUNTER → 2024-10-10 | Outpatient (CLI) | payer OTHER, SELFPAY ==
--- NOTE | 2024-10-10 15:44 | XR_ITS ---
Examination: CT chest, without intravenous contrast. Sagittal and coronal 2-D reconstructions. Exam date and time: October 10, 2024 1552 hours INDICATIONS: Intermittent chronic SOB 5 months with history pneumonia 5 months ago CTDI:vol (mGy) 13.1 DLP: (mGycm) 508 Technique: Multiple 3.0 mm axial sections of the chest to been obtained. Bone and lung density settings are obtained. Sagittal and coronal 2-D reconstructions have been obtained. Low dose protocols were performed. One or more of the following dose reduction techniques were used; automated exposure control, adjustment of the mA and/or KV according to patient size, use of iterative reconstruction technique. Findings: No thoracic aorta aneurysm dilatation. Pulmonary artery segments are not enlarged. Mild enlargement cardiac contour. Atelectasis and mild scarring in the lingular segment No active pneumonia No pulmonary edema No pleural disease No visualized liver or splenic lesion No gallstones No pancreatic or adrenal mass Kidneys partially visualized no hydronephrosis Moderate thoracic spondylosis IMPRESSION: Atelectasis and mild scarring in the lingular segment left upper lobe No active pneumonia
== END | disposition home or self-care (01) ==
PROVIDERS: Referring Provider Family Medicine; Visit Provider Family Medicine
DX: R91.8 Other nonspecific abnormal finding of lung field (principal); J98.11 Atelectasis; J44.9 Chronic obstructive pulmonary disease, unspecified; R05.3 Chronic cough
CPT/HCPCS: 71250

== ENCOUNTER 2024-10-17 09:00 | Day surgery (SDC) | payer OTHER, SELFPAY ==
[2024-10-12 08:16] VITALS: BMI 32.0
[2024-10-12 09:01] LABS: Basophils # (Auto) 0.1 Thou/mm3 (0.0-0.2); Basophils % (Auto) 1 % (0-2.5); Eosinophils # (Auto) 0.6 Thou/mm3 (0.0-0.5); Eosinophils % (Auto) 6 % (0-10); Hematocrit 45.5 % (41.0-53.0); Hemoglobin 15.5 g/dL (13.5-16.0); Immature Granulocytes Auto 0.02 Thou/mm3 (0.00-0.00); Lymphocytes # (Auto) 3.3 Thou/mm3 (1.0-4.8); Lymphocytes % (Auto) 38 % (10-50); Mean Corpuscular HGB Conc 34.1 g/dl (31.0-37.0); Mean Corpuscular Hemoglobin 30.5 pg (25.0-35.0); Mean Corpuscular Volume 90 fL (80-100); Monocytes # (Auto) 0.9 Thou/mm3 (0.0-0.8); Monocytes % (Auto) 10 % (0-12); Neutrophils # (Auto) 3.8 Thou/mm3 (1.8-7.7); Neutrophils % (Auto) 44 % (37-80); Nucleated Red Blood Cell # 0.00 Thou/mm3 (0.00-0.00); Nucleated Red Blood Cell % 0 /100 WBC (0); Platelet Count 326 Thou/mm3 (140-440); RDW Standard Deviation 44.0 fL (35.1-43.9); Red Blood Count 5.08 Miln/mm3 (4.50-5.90); White Blood Count 8.6 Thou/mm3 (3.8-10.6)
[2024-10-12 09:09] LABS: INR 1.0 (0.9-1.3); Partial Thromboplastin Time 27.8 Seconds (22.0-36.0); Prothrombin Time 11.4 Seconds (9.0-12.2)
[2024-10-12 09:12] LABS: Alanine Aminotransferase 12 U/L (10-49); Albumin, Serum 4.6 gm/dL (3.4-4.8); Albumin/Globulin Ratio 2.0 (1.2-2.2); Alkaline Phosphatase 72 U/L (46-116); Anion Gap 10 (7-16); Aspartate Amino Transferase 10 U/L (0-34); BUN/Creatinine Ratio 9 Ratio (12-20); Bilirubin,Total 0.6 mg/dL (0.3-1.2); Blood Urea Nitrogen 9 mg/dL (9-23); Calcium 9.7 mg/dL (8.3-10.6); Calcium (Corrected) 9.7 mg/dL (8.5-10.1); Carbon Dioxide 25.9 mMol/L (20.0-31.0); Chloride 104 mMol/L (98-107); Creatinine (Component) 1.0 mg/dL (0.6-1.3); Estimated Creatinine Clearance 70.2 mL/min (>60); Globulin 2.3 gm/dL (2.3-3.5); Glucose 85 mg/dL (74-106); Osmolality,Calculated 277 (275-295); Potassium 3.4 mMol/L (3.4-5.1); Sodium 140 mMol/L (136-145); Total Protein 6.9 gm/dL (5.7-8.2); eGFR > 60 See Note
[2024-10-17] VITALS (10 sets, daily range): BP systolic 102–128; BP diastolic 69–80; PULSE 47–77; RESP 13–17; TEMP 36.6–37.2; O2SAT 95–100; BMI 31.5
[2024-10-17] MEDS: RINGERS LACTATED 1000 ML 1,000 ML 20 ML IV (09:30)
--- NOTE | 2024-10-17 12:36 | SUR.PHASEI ---
1236 Patient arrived to recovery resting comfortably in [facility], on oxygen 6L via oxy mask with an oral airway in place, breathing unlabored, vital signs stable, dressing intact to penis; sutures, ointment, vaseline gauze, tape, no bleeding noted, report received from Arvind LIANG and Dr. Marin.
--- NOTE | 2024-10-17 12:54 | PD.SUROPNT ---
Date of Procedure 10/17/24 Pre Op Diagnosis Severe phimosis Post Op Diagnosis Same Stricture of urethra Procedure Circumcision Findings Patient was found to have profuse that could not be retracted due to chronic infection. At the time of circumcision patient was found to have narrowing of the urethral meatus also Procedure Description After the patient was brought to the operating room LMA anesthesia was given. Then 2 g of Ancef was given because of chronic infection. The penis was washed along with the external genitalia and draped in a sterile manner. Timeout was performed. I marked the excess skin on the prepuce with the marker. I excised it with the Metzenbaum scissors and bleeding vessel controlled with the needlepoint cautery. Then I approximated the divided skin close to the glans penis at the coronal sulcus. At this time I noticed that the patient has had narrowing of the urethra and I dilated it slightly with smallest ureteral dilatation. Then after checking for the bleeding points I applied a ointment over the suture line and a dressing was applied with a gauze and tape. Patient tolerated the procedure well. Anesthesia other Pathology / specimen None Estimated Blood Loss 20 Surgeon Ronny Horn MD Surgical Staff Operation Date: 10/17/24 12:15 Case Staff Anesthesiologist: Odilon Marin
[2024-10-17] MEDS: MORPHINE SULF INJ 10 MG/ML VIAL 3 MG IVP (13:42)
--- NOTE | 2024-10-17 14:20 | SUR.PHASEII ---
1420 patient meets discharge criteria from recovery, awake and alert, breathing unlabored, vital signs stable, per patient his pain is tolerable, while getting dressed patient dressing fell off, dressing reapplied prior to discharge, no bleeding noted, patient assisted with dressing into his clothing by is , discharge instructions given to patient, patient and son with the assistance of the hospital spanish interpreter Cyndee, patient signed discharge instructions. Patient given all his belongings prior to discharge, transported via wheelchair and left in a private vehicle.
== END 2024-10-17 14:20 | disposition home or self-care (01) ==
LOC: S2EX 15:04
PROVIDERS: PCP Family Medicine; Referring Provider Surgery; Visit Provider Surgery
PROC: (CPT 54161; principal; 2024-10-17 12:00)
DX: N47.1 Phimosis (principal); N35.811 Other urethral stricture, male, meatal; I10 Essential (primary) hypertension
CPT/HCPCS: 54161; 36415; 80053; 85025; 85610; 85730; A4217; A4649; J0131; J0690; J1100; J1885; J2270; J2405; J2704; J3010; J3490; J7120; A9270; J0665